=== PATIENT | female | born 1990 ===

== ENCOUNTER 2025-01-04 16:29 | Outpatient (AMB) | payer BC, SELFPAY ==
--- OUTSIDE RECORDS SUMMARY | 2025-01-04 17:43 | XMS_ITS | Clinical Summary ---
Author Organization [facility] Address [address] [place] [address] Care Team Providers Care Vegetable Washer Name Role Phone Alva Ibrahim MD Primary Care Prov ider Allergies Active Allergy Reactions Criticality Noted Date Comments Pollen Extracts 12/05/2008 Sulfa (Sulfonamide Antibiotics) Rash 11/2012 Medications syringe with needle, 1 mL (ALLERGY SYRINGE MISC) Inject as directed. Active fluticasone propionate (FLONASE) 50 mcg/actuation nasal spray 2 Sprays by Each Nare route daily. Active ivermectin 1 % cream 3 Active ketoconazole (NIZORAL) 2 % shampoo USE A FACE WASH DAILY 3 Active levonorgestrel- ethinyl estradiol (Vienva) 0.1-20 mg-mcg per tablet Take 1 tablet by mouth 1 (one) time each day. 3 Active tacrolimus (PROTOPIC) 0.1 % ointment Apply 1 Application topically 2 (two) times a day if needed. 1 Active Active Problems Problem Noted Date Diagnosed Date Seasonal allergies 05/29/2016 Overview (06/08/2024): Follows with Dr munoz- on immunotherapy Immunizations Name Administration Dates Next Due DTP 10/31/1994, 1,04/02/1990,01/31,1989 [id number] (Pentacel) 2mo to less than 5yo 03/02/1991 HPV, Quadrivalent 05/10/2008,01/05/2008,11/02/19 08 Hepatitis B Pediatric (Enger ix B; Recombivax HB) to less than 20 yo 12/31/2001,07/31/2001,07/03/2001 Influenza trivalent, 0.5mL, preservative free (Fluarix; FluLaval; Fluzone) ages 6mo and older (Afluria) 3 years and older 05/29/2016,02/20/2015,03/10/2014,03/09 MMR, measles mumps and rubel la Live (Priorix; M-M-R II) 12mo and older 10/31/1994,12/31/1990 Meningococcal MCV4P 10/29/2006 OPV 10/31/1994, 1,01/31/1990,11/30 Td Tetanus diptheria (Tdvax) 7yo and older 12/31/2000 Tdap Tetanus diptheria acell ular pertussis (Boostrix; Adacel) 7yo and older 05/29/2016,01/09/2006 Varicella live (Varivax) 12m o and older 12/05/2008,10/31/1997 Surgical History Surgery Date Site/Laterality Comments EYE SURGERY 05/2014 PROCEDURE: HISTORICAL EYE SURGERY; COMMENT: kane Medical History Medical History Date Comments Infectious mononucleosis DX:Infe ctious mononucleosis; COMMENT: at age 6 Family History Medical History Relation Name Comments Emphysema Father Diabetes Maternal Grandfather Other: heart Maternal Grandmother Other: pulmonary Maternal Grandmother Breast cancer Mother's side 1 aunt Melanoma Mother's side 2 UNCLE Allergies Sister 1 pcn Relation Name Status Comments Father Alive 1955 seperated sees dad regularly Maternal Grandfather (Age 95) Maternal Grandmother (Age 93) Mother Alive 1954 Mother's side 1 Mother's side 2 Mother's side 3 Paternal Grandfather Paternal Grandmother Alive Sister 1 Sister 2 Alive Yadira 1987 Social History Tobacco Use Types Packs/Day Years Used Date Smoking Tobacco: Never Smokeless Tobacco: Never Alcohol Use Standard Drinks/Week Comments Yes 1.7 (1 standard drink = 0.6 oz p ure alcohol) Housing Instability Answer Date Recorde d Are you worried that in the next 2 months you may not have stable housing? No 12/29/2024 Food Access & Nutrition Answer Date Rec orded Do you have access to a vari ety of food including fruits and vegetables? Yes 12/29/2024 Access to Healthcare Answer Date Record ed Within the last 3 months, ho w many times did you visit the emergency department for your medical care? 0 12/29/2024 Health Literacy Answer Date Recorded How often do you need to hav e someone help you when you read instructions, pamphlets, or other written material from your doctor or pharmacy? Never 12/29/2024 Caregiver: How often do you need to have someone help you when you read instructions, pamphlets, or other written material from your doctor or pharmacy? Not on file 12/29/2024 Financial Risk Answer Date Recorded How hard is it for you to pa y for the very basics like food, housing, medical care, and air conditioning / heating? Not very hard 12/29/2024 Transportation Answer Date Recorded Has the lack of transportati on kept you from meetings, work, or from getting things needed for daily living? No Has the lack of transportati on kept you from medical appointments or from getting medications? No 12/29/2024 Social Isolation Answer Date Recorded How often do you feel lonely or isolated from th ose around you? Never 12/29/2024 Food Risk Answer Date Recorded Within the past 12 months we worried whether our food would run out before we got money to buy more. Never true 12/29/2024 Within the past 12 months th e food we bought just didn't last and we didn't have money to get more. Never true 12/29/2024 Dependent Care Answer Date Recorded Do you need help finding or paying for care for your loved ones. For example, child and family counselor or elderly care for an older adult? No 12/29/2024 Education Answer Date Recorded Do you think completing more education or training, like finishing a GED, going to college, or learning a trade, would be helpful for you? No 12/29/2024 Employment and Income Answer Date Recor ded During the last four weeks, have you been actively looking for work? No 12/29/2024 Living Situation Answer Date Recorded What is your living situation? 0 12/29/2024 Comments Unknown Sex and Gender Information Value Date Recorded Sex Assigned at Not on file Legal Sex Female 11:09 PM EST Gender Identity Not on file Sexual Orientation Not on file Obstetrics History Last Filed Vital Signs Vital Sign Reading Time Taken Comments Blood Pressure 114/78 01/05/2024 8:57 AM EDT Pulse 83 01/05/2024 8:57 AM EDT Temperature - - Respiratory Rate - - Oxygen Saturation - - Inhaled Oxygen Concentration - - Weight 80.4 kg (177 lb 3.2 oz) 01/05/2024 8:57 A M EDT Height 175.3 cm (5' 9 ) 01/05/2024 8:57 AM EDT Body Mass Index 26.17 01/05/2024 8:57 AM EDT Plan of Treatment Upcoming Encounters Date Type Department Care Team (Late st Contact Info) Description 01/05/2025 9:30 AM EDT Office Visit Adult Medicine - [place] [address] [place] [address] Alva Ibrahim MD [address] [place] [address] Health Maintenance Due Date Last Done Comments COVID-19 Vaccine (3 - Moderna risk series) 07/18/2020 06/20/2020, 05/23/2020 HIV Screening 04/27/2022 Hepatitis C Screening 04/27/2022 Influenza Vaccine (#1) 2025 7, 02/20/2015, 03/10/2014, Additional history exists Social Influencers of Health Screening 12/29/2025 12/29/2024 DTaP,Tdap,and Td Vaccines (9 - Td or Tdap) 05/29/2026 05/29/2016, 01/09/2006, 12/31/2000, Additional history exists Cervical Cancer Screening: Pap Smear 01/04/2027 01/05/2024, 02/08/2013 Cholesterol Screening (Lipid Panel) 01/04/2029 01/05/2024, 01/05/2024 HIB Vaccines Completed 03/02/1991 IPV Vaccines Completed 10/31/1994, 03/19, 03/02/1991, Additional history exists MMR Vaccines Completed 10/31/1994, 12/31/1990 Hepatitis B Vaccines Completed 12/31/2001, 07/31/2001, 07/03/2001 Meningococcal ACWY Vaccine Completed 10/29/2006 HPV Vaccines Completed 05/10/2008, 12/17, 11/02/2007 Varicella Vaccines Completed 12/05/2008, 10/31/1997 Depression Screening Completed 12/29/2024 Hepatitis A Vaccines Aged Out No long er eligible based on patient's age to complete this topic Meningococcal B Vaccine Aged Out No l onger eligible based on patient's age to complete this topic Pneumococcal Vaccine: Pediatrics (0 to 5 Years) and At-Risk Patients (6 to 49 Years) Aged Out No longer eligible based on patient's age to complete this topic RSV Immunization Patients Under 20 months Aged Out No longer eligible based on patient's age to complete this topic Procedures Procedure Name Priority Date/Time Associated Diagnosis Comments LIPID PANEL Routine 01/05/2024 PAP SMEAR Routine 01/05/2024 from Last 3 Months or Most Recently Relevant to Health Maintenance Results * Hm Pap Smear (01/05/2024) Pap smear no interpretation , abstracted Historical Provider HEALTH MAINTENANCE Final Result * (ABNORMAL) Lipid panel (01/05/2024) LDL/HDL Ratio 3 0 - 4 Triglycerides 171(A) 0 - 150 mg/dL Cholesterol 197 0 - 200 mg/dL HDL 60 >=40 mg/dL LDL Cholesterol 103(A) 0 - 100 mg/dL Blood Venous blood specimen / Unknown Historical Provider LAB BLOOD ORDERABLES Lynnette l Result from Last 3 Months or Most Recently Relevant to Health Maintenance Insurance [facility] Care Teams Vegetable Washer Relationship Specialty Start Date End Date Alva Ibrahim MD [address] [place] [id number] PCP - General Internal Medicine 12/23/24
--- OUTSIDE RECORDS SUMMARY | 2025-01-04 17:43 | XMS_ITS ---
Author Name [facility] Organization Unknown Care Team Organization Name Specialty Phone Email Start Date End Da te [facility] GABRIEL WALDEN Primary Care 04/30/2023 01/05/2024
== END 2025-01-04 16:45 | disposition home or self-care (01) ==
LOC: HO.HMGAL 16:29
PROVIDERS: PCP Internal Medicine; Visit Provider Registered Nurse Emergency
DX: J30.89 Other allergic rhinitis (principal)
CPT/HCPCS: 95117; 95165

== ENCOUNTER 2025-01-31 15:18 | Outpatient (AMB) | payer BC, SELFPAY ==
--- OUTSIDE RECORDS SUMMARY | 2025-01-31 20:43 | XMS_ITS | Clinical Summary ---
Author Organization [facility] [address] [facility] Address [address] [place] [address] Phone Care Team Providers Care Medical Pathology Teacher Name Role Phone Alva Ibrahim MD Primary [...] (06/08/2024): Follows with Dr munoz- on immunotherapy Encounters Date Type Department Care Team Description 01/05/2025 9:30 AM EDT Office Visit Adult Medicine - [place] [address] [place] [address] Alva Velez MD Physical exam, annual (Primary Dx) from Last 3 Months Immunizations Name Administration Dates Next Due DTP 10/31/1994, 1,04/02/1990,01/31,1989 [id number] (Pentacel) 2mo to less than 5yo 03/02/1991 [...] SURGERY 05/2014 PROCEDURE: HISTORICAL EYE SURGERY; COMMENT: lasik Medical History Medical History Date Comments Infectious [...] Date Smoking Tobacco: Never Smokeless Tobacco: Never Tobacco Cessation:Counseling Given: Not Answered Alcohol Use Standard Drinks/Week Comments Yes 1.7 [...] care for your loved ones. For example, early childhood aide classroom or elderly care for an older adult? [...] is your living situation? 0 12/29/2024 Comments No Sex and Gender Information Value Date Recorded Sex Assigned at Not on file Legal Sex Female 11:09 PM EST Gender Identity Not on file Sexual Orientation Not on file Obstetrics History Last Filed Vital Signs Vital Sign Reading Time Taken Comments Blood Pressure 112/75 01/05/2025 9:27 AM EDT Pulse 78 01/05/2025 9:27 AM EDT Temperature 36.7 C (98 F) 01/05/2025 9:27 AM EDT Respiratory Rate - - Oxygen Saturation - - Inhaled Oxygen Concentration - - Weight 78.3 kg (172 lb 9.6 oz) 01/05/2025 9:27 A M EDT Height 175.3 cm (5' 9 ) 01/05/2025 9:27 AM EDT Body Mass Index 25.49 01/05/2025 9:27 AM EDT Plan of Treatment Upcoming Encounters Date Type Department Care Team (Late st Contact Info) Description 01/06/2026 8:30 AM EDT Office Visit Adult Medicine - [address] [phone] Alva Ibrahim MD [address] [place] [address] Health Maintenance Due Date Last Done Comments COVID-19 Vaccine ( season) 2025 02/15/2023, 09/26/2021, 04/13/2021, Additional history exists Influenza Vaccine (#1) 2025 , 02/18/2023, 02/25/2022, Additional history exists Social Influencers of Health Screening 12/29/2025 12/29/2024 DTaP,Tdap,and Td Vaccines (9 - Td or Tdap) 05/29/2026 05/29/2016, 01/09/2006, 12/31/2000, Additional history exists Cervical Cancer Screening: Pap Smear 01/04/2027 01/05/2024, 02/08/2013 Cholesterol Screening (Lipid Panel) 01/13/2030 01/13/2025, 01/05/2024, 01/05/2024 HIB Vaccines Completed 03/02/1991, 03/02/1991 IPV Vaccines Completed 10/31/1994, 03/19, 03/02/1991, Additional history exists MMR Vaccines Completed 10/31/1994, 12/31/1990 Hepatitis B Vaccines Completed 12/31/2001, 07/31/2001, 07/03/2001 Meningococcal ACWY Vaccine Completed 10/29/2006 HPV Vaccines Completed 05/10/2008, 12/17, 11/02/2007 Varicella Vaccines Completed 12/05/2008, 10/31/1997 Depression Screening Completed 12/29/2024 HIV Screening Discontinued Hepatitis A Vaccines Aged Out No long er eligible based on patient's age to complete this topic Hepatitis C Screening Discontinued Meningococcal B Vaccine Aged Out No l [...] Procedure Name Priority Date/Time Associated Diagnosis Comments CBC WITH AUTO DIFFERENTIAL Routine 01/13/2025 8:44 AM EDT Physical exam, annual THYROID STIMULATING HORMONE WITH REFLEX TO FREE T4 AND FREE T3 Routine 01/13/2025 8:44 AM EDT Physical exam, annual COMPREHENSIVE METABOLIC PANEL Routine 01/13/2025 8:44 AM EDT Physical exam, annual CBC AND DIFFERENTIAL Routine 01/13/2025 8:44 AM EDT Physical exam, annual LIPID PANEL WITH REFLEX TO DIRECT LDL Routine 01/13/2025 8:44 AM EDT Physical exam, annual HM PAP SMEAR Routine 01/05/2024 from Last 3 Months or Most Recently Relevant to Health Maintenance Results * Thyroid stimulating hormone with reflex to free t4 and free t3 (01/13/2025 8:44 AM EDT) TSH 1.56 0.40 - 4.00 mcIU/mL LAB CHEMISTRY METHOD 01/13/2025 1:00 PM EDT [facility] Blood Venous blood specimen / Unknown Venipuncture / Unknown 01/13/2025 8:44 AM EDT 01/13/2025 8:44 AM EDT us Alva Ibrahim MD LAB BLOOD ORDERABL ES Final Result [facility] [address] [place] [address], * (ABNORMAL) Lipid panel with reflex to direct LDL (01/13/2025 8:44 AM EDT) Pathologist [facility] Cholesterol 198 0 - 200 mg/dL LAB CHEMISTRY METHOD 01/13/2025 12:13 PM EDT [facility] Triglycerides 100 0 - 150 mg/dL LAB CHEMISTRY METHOD 01/13/2025 12:13 PM [facility] HDL 68 >=40 mg/dL LAB CHEMISTRY METHOD 01/13/2025 12:13 PM [facility] LDL Calculated 110(H) 0 - 100 mg/dL LAB CHEMISTRY METHOD 01/13/2025 12:13 PM T [facility] Comment:Estimated LDL Calcul ated using equation: Total cholesterol - HDL cholesterol - (Triglycerides/5) VLDL Cholesterol Darrel 20 mg/dL LAB CHEMISTRY METHOD 01/13/2025 12:13 PM EDT [facility] Non HDL Chol. (LDL+VLDL) 130 <145 mg/dL LAB CHEMISTRY METHOD 01/13/2025 12:13 PM [facility] Chol/HDL Ratio 2.9 0.0 - 4.4 LAB CHEMISTRY METHOD 01/13/2025 12:13 PM [facility] Blood Venous blood specimen / Unknown Venipuncture / Unknown 01/13/2025 8:44 AM EDT 01/13/2025 8:44 AM EDT Alva Ibrahim MD LAB BLOOD ORDERABL ES Final Result [facility] [address] [place] [address], * (ABNORMAL) CBC auto differential (01/13/2025 8:44 AM EDT) WBC 4.9 4.8 - 10.8 K/mcL LAB HEMETOLOGY METHOD 01/13/2025 11:44 AM [facility] RBC 4.50 3.80 - 4.80 M/mcL LAB HEMETOLOGY METHOD 01/13/2025 11:44 AM [facility] Hemoglobin 12.6 11.5 - 16.0 g/dL LAB HEMETOLOGY METHOD 01/13/2025 11:44 AM [facility] Hematocrit 39.4 35.0 - 47.0 % LAB HEMETOLOGY METHOD 01/13/2025 11:44 AM [facility] MCV 87.9 79.0 - 98.0 FL LAB HEMETOLOGY METHOD 01/13/2025 11:44 AM [facility] MCH 28.1 27.0 - 32.0 pcg LAB HEMETOLOGY METHOD 01/13/2025 11:44 AM [facility] MCHC 32.0 32.0 - 37.0 g/dL LAB HEMETOLOGY METHOD 01/13/2025 11:44 AM [facility] RDW 12.6 11.0 - 15.0 % LAB HEMETOLOGY METHOD 01/13/2025 11:44 AM [facility] Platelets 334 130 - 400 K/mcL LAB HEMETOLOGY METHOD 01/13/2025 11:44 AM [facility] MPV 10.0 7.0 - 11.0 FL LAB HEMETOLOGY METHOD 01/13/2025 11:44 AM [facility] NRBC 0.0 <1.0 % LAB HEMETOLOGY METHOD 01/13/2025 11:44 AM [facility] NRBC Absolute 0.00 <0.10 K/mcL LAB HEMETOLOGY METHOD 01/13/2025 11:44 AM [facility] Neutrophils Relative 52.1 % LAB HEMETOLOGY METHOD 01/13/2025 11:44 AM [facility] Lymphocytes Relative 34.8 % LAB HEMETOLOGY METHOD 01/13/2025 11:44 AM [facility] Monocytes Relative 7.8 % LAB HEMETOLOGY METHOD 01/13/2025 11:44 AM [facility] Eosinophils Relative 3.5 % LAB HEMETOLOGY METHOD 01/13/2025 11:44 AM [facility] Basophils Relative 1.0 % LAB HEMETOLOGY METHOD 01/13/2025 11:44 AM [facility] Immature Granulocytes Relative 0.8 % LAB HEMETOLOGY METHOD 01/13/2025 11:44 AM [facility] Neutrophils Absolute 2.54 1.50 - 7.00 K/mcL LAB HEMETOLOGY METHOD 01/13/2025 11:44 AM [facility] Lymphocytes Absolute 1.70 1.00 - 5.00 K/mcL LAB HEMETOLOGY METHOD 01/13/2025 11:44 AM [facility] Monocytes Absolute 0.38 0.20 - 1.00 K/mcL LAB HEMETOLOGY METHOD 01/13/2025 11:44 AM [facility] Eosinophils Absolute 0.17 0.00 - 0.50 K/[facility] LAB HEMETOLOGY METHOD 01/13/2025 11:44 AM EDT [facility] Basophils Absolute 0.05 0.00 - 0.20 K/[facility] LAB HEMETOLOGY METHOD 01/13/2025 11:44 AM EDT [facility] Immature Granulocytes Absolute 0.04(H) 0.00 - 0.03 K/[facility] LAB HEMETOLOGY METHOD 01/13/2025 11:44 AM EDT [facility] Blood Venous blood specimen / Unknown Venipuncture / Unknown 01/13/2025 8:44 AM EDT 01/13/2025 8:44 AM EDT us Alva Ibrahim MD LAB BLOOD ORDERABL ES Final Result [facility] [address] [place] [address], * Comprehensive metabolic panel (01/13/2025 8:44 AM EDT) Sodium 137 133 - 145 mmol/L LAB CHEMISTRY METHOD 01/13/2025 12:13 PM [facility] Potassium 4.4 3.5 - 5.5 mmol/L LAB CHEMISTRY METHOD 01/13/2025 12:13 PM [facility] Chloride 104 96 - 110 mmol/L LAB CHEMISTRY METHOD 01/13/2025 12:13 PM [facility] CO2 28 21 - 32 mmol/L LAB CHEMISTRY METHOD 01/13/2025 12:13 PM [facility] Anion Gap 5 3 - 11 LAB CHEMISTRY METHOD 01/13/2025 12:13 PM [facility] Glucose 87 70 - 100 mg/dL LAB CHEMISTRY METHOD 01/13/2025 12:13 PM [facility] BUN 10 5 - 25 mg/dL LAB CHEMISTRY METHOD 01/13/2025 12:13 PM [facility] Creatinine 0.74 0.50 - 1.10 mg/dL LAB CHEMISTRY METHOD 01/13/2025 12:13 PM [facility] eGFR 108 >=60 mL/min/1. 73m2 LAB CHEMISTRY METHOD 01/13/2025 12:13 PM [facility] Comment:Calculation based on the Chronic Kidney Disease Epidemiology Collaboration (CKD-EPI) equation refit without adjustment for race. BUN/Creatinine Ratio 13.5 LAB CHEMISTRY METHOD 01/13/2025 12:13 PM [facility] Calcium 9.3 8.5 - 10.5 mg/dL LAB CHEMISTRY METHOD 01/13/2025 12:13 PM [facility] AST (SGOT) 19 10 - 42 unit/L LAB CHEMISTRY METHOD 01/13/2025 12:13 PM [facility] ALT (SGPT) 24 10 - 60 unit/L LAB CHEMISTRY METHOD 01/13/2025 12:13 PM [facility] Alkaline Phosphatase 58 42 - 121 unit/L LAB CHEMISTRY METHOD 01/13/2025 12:13 PM [facility] Total Protein 7.7 6.0 - 8.0 g/dL LAB CHEMISTRY METHOD 01/13/2025 12:13 PM [facility] Albumin 3.7 3.2 - 5.0 g/dL LAB CHEMISTRY METHOD 01/13/2025 12:13 PM [facility] Total Bilirubin 0.5 0.0 - 1.4 mg/dL LAB CHEMISTRY METHOD 01/13/2025 12:13 PM [facility] Blood Venous blood specimen / Unknown Venipuncture / Unknown 01/13/2025 8:44 AM EDT 01/13/2025 8:44 AM EDT us Alva Ibrahim MD LAB BLOOD ORDERABL ES Final Result [id number] [address] [place] [address], * Pap Smear (01/05/2024) Pap smear no interpretation , abstracted Historical Provider HEALTH MAINTENANCE Final Result from Last 3 Months or Most Recently Relevant to Health Maintenance Insurance [facility] Care Teams Medical Pathology Teacher Relationship Specialty Start Date End Date Alva Ibrahim MD [address] [place] [address] [place] [id number] PCP - General Internal Medicine 12/23/24
== END 2025-01-31 15:19 | disposition home or self-care (01) ==
LOC: HO.HMGAL 15:18
PROVIDERS: PCP Internal Medicine; Visit Provider Registered Nurse Emergency
DX: J30.89 Other allergic rhinitis (principal)
CPT/HCPCS: 95117; 95165

== ENCOUNTER 2025-03-02 16:09 | Outpatient (AMB) | payer BC, SELFPAY ==
--- OUTSIDE RECORDS SUMMARY | 2025-03-02 19:18 | XMS_ITS | Clinical Summary ---
Author Organization [facility] [address] [facility] Address [address] [place] [address] Phone Care Team Providers Care Shop Steward Name Role Phone Alva Ibrahim MD Primary [...] AM EDT Office Visit Adult Medicine - [place] [address] [place] [address] Alva Velez MD Physical exam, annual (Primary Dx) from Last 3 Months Immunizations Immunization Administration Dates Next Due DTP 10/31/1994, 1,04/02/1990,01/31,1989 [id number] (Pentacel) 2mo to less than 5yo 03/02/1991 [...] care for your loved ones. For example, children teacher or elderly care for an older adult? [...] Date Recorded What is your living situation? Unrecognized valu e 12/29/2024 Comments No Sex and Gender Information [...] AM EDT Office Visit Adult Medicine - [place] [address] [place] [phone] Alva Ibrahim MD [address] [place] [address] Health Maintenance Due Date Last Done Comments [...] Screening (Lipid Panel) 01/13/2030 01/13/2025, 01/05/2024, 01/05/2024 RSV Immunization Adult Patients (1 - 1-dose 75+ series) 2064 HIB Vaccines Completed 03/02/1991, 03/02/1991 IPV Vaccines [...] and free t3 (01/13/2025 8:44 AM EDT) Pathologist [facility] TSH 1.56 0.40 - 4.00 mcIU/mL LAB CHEMISTRY METHOD 01/13/2025 1:00 PM EDT [facility] Blood Venous blood specimen / Unknown Venipuncture / Unknown 01/13/2025 8:44 AM EDT 01/13/2025 8:44 AM EDT us Alva Ibrahim MD LAB BLOOD ORDERABL ES Final Result [facility] [address] [place] [address], [place] [phone] * (ABNORMAL) Lipid panel with reflex to direct LDL (01/13/2025 8:44 AM EDT) [facility] Cholesterol 198 0 - 200 mg/dL LAB CHEMISTRY METHOD 01/13/2025 12:13 PM EDT [facility] Triglycerides 100 0 - 150 mg/dL LAB CHEMISTRY METHOD 01/13/2025 12:13 PM T [facility] HDL 68 >=40 mg/dL LAB CHEMISTRY METHOD 01/13/2025 12:13 PM EDT [facility] LDL Calculated 110(H) 0 - 100 mg/dL LAB CHEMISTRY METHOD 01/13/2025 12:13 PM T [facility] Comment:Estimated LDL Calcul ated using equation: Total cholesterol - HDL cholesterol - (Triglycerides/5) VLDL Cholesterol Darrel 20 mg/dL LAB CHEMISTRY METHOD 01/13/2025 12:13 PM [facility] Non HDL Chol. (LDL+VLDL) 130 <145 mg/dL LAB CHEMISTRY METHOD 01/13/2025 12:13 PM EDT [facility] Chol/HDL Ratio 2.9 0.0 - 4.4 LAB CHEMISTRY METHOD 01/13/2025 12:13 PM EDT [facility] Blood Venous blood specimen / Unknown Venipuncture / Unknown 01/13/2025 8:44 AM EDT 01/13/2025 8:44 AM EDT us Alva Ibrahim MD LAB BLOOD ORDERABL ES Final Result [facility] [address] [place] [address], * (ABNORMAL) CBC auto differential (01/13/2025 8:44 AM EDT) WBC 4.9 4.8 - 10.8 K/mcL LAB HEMETOLOGY METHOD 01/13/2025 11:44 AM EDT [facility] RBC 4.50 3.80 - 4.80 M/[facility] LAB HEMETOLOGY METHOD 01/13/2025 11:44 AM EDT [facility] Hemoglobin 12.6 11.5 - 16.0 g/dL LAB HEMETOLOGY METHOD 01/13/2025 11:44 AM EDT [facility] Hematocrit 39.4 35.0 - 47.0 % LAB HEMETOLOGY METHOD 01/13/2025 11:44 AM EDT [facility] MCV 87.9 79.0 - 98.0 FL LAB HEMETOLOGY METHOD 01/13/2025 11:44 AM EDT [facility] MCH 28.1 27.0 - 32.0 pcg LAB HEMETOLOGY METHOD 01/13/2025 11:44 AM EDT [facility] MCHC 32.0 32.0 - 37.0 g/dL LAB HEMETOLOGY METHOD 01/13/2025 11:44 AM EDT [facility] RDW 12.6 11.0 - 15.0 % LAB HEMETOLOGY METHOD 01/13/2025 11:44 AM [facility] Platelets 334 130 - 400 K/mcL LAB HEMETOLOGY METHOD 01/13/2025 11:44 AM [facility] MPV 10.0 7.0 - 11.0 FL LAB HEMETOLOGY METHOD 01/13/2025 11:44 AM [facility] NRBC 0.0 <1.0 % LAB HEMETOLOGY METHOD 01/13/2025 11:44 AM [facility] NRBC Absolute 0.00 <0.10 K/mcL LAB HEMETOLOGY METHOD 01/13/2025 11:44 AM [facility] Neutrophils Relative 52.1 % LAB HEMETOLOGY METHOD 01/13/2025 11:44 AM [facility] Lymphocytes Relative 34.8 % LAB HEMETOLOGY METHOD 01/13/2025 11:44 AM [facility] Monocytes Relative 7.8 % LAB HEMETOLOGY METHOD 01/13/2025 11:44 AM [facility] Eosinophils Relative 3.5 % LAB HEMETOLOGY METHOD 01/13/2025 11:44 AM [facility] Basophils Relative 1.0 % LAB HEMETOLOGY METHOD 01/13/2025 11:44 AM [facility] Immature Granulocytes Relative 0.8 % LAB HEMETOLOGY METHOD 01/13/2025 11:44 AM [facility] Neutrophils Absolute 2.54 1.50 - 7.00 K/mcL LAB HEMETOLOGY METHOD 01/13/2025 11:44 AM [facility] Lymphocytes Absolute 1.70 1.00 - 5.00 K/mcL LAB HEMETOLOGY METHOD 01/13/2025 11:44 AM [facility] Monocytes Absolute 0.38 0.20 - 1.00 K/mcL LAB HEMETOLOGY METHOD 01/13/2025 11:44 AM EDT [facility] Eosinophils Absolute 0.17 0.00 - 0.50 K/mcL LAB HEMETOLOGY METHOD 01/13/2025 11:44 AM EDT [facility] Basophils Absolute 0.05 0.00 - 0.20 K/mcL LAB HEMETOLOGY METHOD 01/13/2025 11:44 AM EDT [facility] Immature Granulocytes Absolute 0.04(H) 0.00 - 0.03 K/mcL LAB HEMETOLOGY METHOD 01/13/2025 11:44 AM EDT [facility] Blood Venous blood specimen / Unknown Venipuncture / Unknown 01/13/2025 8:44 AM EDT 01/13/2025 8:44 AM EDT Alva Ibrahim MD LAB BLOOD ORDERABL ES Final Result [facility] [address] [place] [address], * Comprehensive metabolic panel (01/13/2025 8:44 AM EDT) Sodium 137 133 - 145 mmol/L LAB CHEMISTRY METHOD 01/13/2025 12:13 PM [facility] Potassium 4.4 3.5 - 5.5 mmol/L LAB CHEMISTRY METHOD 01/13/2025 12:13 PM [facility] Chloride 104 96 - 110 mmol/L LAB CHEMISTRY METHOD 01/13/2025 12:13 PM [facility] CO2 28 21 - 32 mmol/L LAB CHEMISTRY METHOD 01/13/2025 12:13 PM [facility] Anion Gap 5 3 - 11 LAB CHEMISTRY METHOD 01/13/2025 12:13 PM [facility] Glucose 87 70 - 100 mg/dL LAB CHEMISTRY METHOD 01/13/2025 12:13 PM [facility] BUN 10 5 - 25 mg/dL LAB CHEMISTRY METHOD 01/13/2025 12:13 PM [facility] Creatinine 0.74 0.50 - 1.10 mg/dL LAB CHEMISTRY METHOD 01/13/2025 12:13 PM [facility] eGFR 108 >=60 mL/min/1. 73m2 LAB CHEMISTRY METHOD 01/13/2025 12:13 PM [facility] Comment:Calculation based on the Chronic Kidney Disease Epidemiology Collaboration (CKD-EPI) equation refit without adjustment for race. BUN/Creatinine Ratio 13.5 LAB CHEMISTRY METHOD 01/13/2025 12:13 PM [facility] Calcium 9.3 8.5 - 10.5 mg/dL LAB CHEMISTRY METHOD 01/13/2025 12:13 PM [facility] AST (SGOT) 19 10 - 42 unit/L LAB CHEMISTRY METHOD 01/13/2025 12:13 PM [facility] ALT (SGPT) 24 10 - 60 unit/L LAB CHEMISTRY METHOD 01/13/2025 12:13 PM [facility] Alkaline Phosphatase 58 42 - 121 unit/L LAB CHEMISTRY METHOD 01/13/2025 12:13 PM [facility] Total Protein 7.7 6.0 - 8.0 g/dL LAB CHEMISTRY METHOD 01/13/2025 12:13 PM [facility] Albumin 3.7 3.2 - 5.0 g/dL LAB CHEMISTRY METHOD 01/13/2025 12:13 PM [facility] Total Bilirubin 0.5 0.0 - 1.4 mg/dL LAB CHEMISTRY METHOD 01/13/2025 12:13 PM [facility] Blood Venous blood specimen / Unknown Venipuncture / Unknown 01/13/2025 8:44 AM EDT 01/13/2025 8:44 AM EDT Alva Ibrahim MD LAB BLOOD ORDERABL ES Final Result [facility] [address] [place] [address], * Pap Smear (01/05/2024) HM Pap smear no interpretation , abstracted Historical Provider HEALTH MAINTENANCE Final Result from Last 3 Months or Most Recently Relevant to Health Maintenance Insurance [facility] Care Teams Shop Steward Relationship Specialty Start Date End Date Alva Ibrahim MD [address] [place] [address] CONST[place]IN MORA [id number] PCP - General Internal Medicine 12/23/24
--- OUTSIDE RECORDS SUMMARY | 2025-03-02 19:18 | XMS_ITS | Data Portability ---
Author Organization [place] - [facility],, DULCE MARIA RUELAS MD Address [address] [address] Care Team Providers Care Radio Communications Mechanician Name Role Phone BLAYNE WALDEN Primary Care Provider Assessment No assessment recorded. Plan of Treatment Reminders Order Date Submit Date Provider Last Modified By Organization Details Last Modified Time Details Appointments None recorded. Lab cytology report, thin prep, smear or scraping, cervical or vaginal 2024 025 NIALL [facility] (Centralized Electronic Ordering - All Locations), Patient Can Go To The Location Of Their Choice, 5 14:20:27 pap test, thinprep, cervical 2023 024 [email or web address] [facility] (Centralized Electronic Ordering - All Locations), Patient Can Go To The Location Of Their Choice, 4 08:20:52 chlamydia sp, culture, unspecifi ed specimen 2023 024 [email or web address] [facility] (Centralized Electronic Ordering - All Locations), Patient Can Go To The Location Of Their Choice, 4 08:20:52 NG DNA, PCR, genital 2023 024 [email or web address] [facility] (Centralized Electronic Ordering - All Locations), Patient Can Go To The Location Of Their Choice, 4 08:20:52 pap, LB 2022 023 [email or web address] [facility] (Centralized Electronic Ordering - All Locations), Patient Can Go To The Location Of Their Choice, 3 07:46:27 pap test, thinprep, cervical 2022 023 [email or web address] [facility] (Centralized Electronic Ordering - All Locations), Patient Can Go To The Location Of Their Choice, 3 07:44:15 chlamydia sp, culture, unspecifi ed specimen 2022 023 [email or web address] [facility] (Centralized Electronic Ordering - All Locations), Patient Can Go To The Location Of Their Choice, 3 07:35:03 NG DNA, PCR, genital 2022 023 [email or web address] [facility] (Centralized Electronic Ordering - All Locations), Patient Can Go To The Location Of Their Choice, 3 07:35:03 pap test, thinprep, cervical 2021 022 [email or web address] [facility], Cytopathology Service, [address] [place] [address], [id number], 2 08:17:00 chlamydia sp, culture, unspecifi ed specimen 2021 022 [email or web address] [facility] Cytopathology Service, [address] [place] [address], [id number], 2 07:34:54 NG DNA, PCR, genital 2021 022 [email or web address] [facility], Cytopathology Service, [address] [place] [address], [id number], 2 07:34:54 Referral None recorded. Procedures None recorded. Surgeries None recorded. Imaging None recorded. Medication Orders Vienva 0.1 mg-20 mcg tablet 2024 025 NIALL [facility], [address] [place] [address], [address], 5 08:37:50 Aviane 0.1 mg-20 mcg tablet 2023 024 [email or web address] [id number], [address] [place], [address], 4 08:35:19 Aviane 0.1 mg-20 mcg tablet 2022 023 [place] [id number], [address] [place], [address], 3 08:54:40 Larissia 0.1 mg-20 mcg tablet 2021 022 [place] [facility], [address], [facility] [address], [place], [place], [id number], 08:28:38 Patient TargetsNo targets recorded. Patient Instructions Encounter Date Encounter Id Patient Instructions Last Modified By Organization Details Last Modified Time 06/21/2021 [id number] learning about healthy weight Not available 06/21/2021 08:27:48 She is here for annual exam, does not have a partner. Doing well on OCP and elects to continue. She has not been sexuallyt active in 4 years. 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 Not available 06/21/2021 08:27:46 06/24/2022 [id number] learning about healthy weight Not available 06/24/2022 08:54:38 She is here for annual exam, does not have a partner. Doing well on OCP and elects to continue. She has not been sexually active in 5 years. 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 We reviewed the interaction of the OCP with antibiotics. We discussed the need to use a condom during antibiotic use and also for a minimum of three weeks following the use of antibiotics. We discused interactions with some herbal and OTC meds, such as Saint Zay's Possible side effects, and the stated risk of one in 10,000 to develop a blood clot/ DVT/PE were also discussed. Safe sex was stressed. All questions answered, rx to be called in to pharmacy. Monthly self breast exam was taught, and stressed, and is advised to call if she discovers any new mass in the breast. [email or web address] Not available 06/24/2022 08:55:15 09/20/2022 [id number] abnormal Pap test: care instructions [email or web address] Not available 09/20/2022 08:24:17 She is here for repeat pap after prior pap had ASCUS negative HR HPV. Pap taken, we discussed that if repeat pap is fine then repeat at next annual, if ASCUS again then colpo. [email or web address] Not available 09/20/2022 08:24:52 06/25/2023 [id number] learning about healthy weight brian Not available 06/25/2023 08:35:19 She is here for annual, doing well on OCP, not sexually active in 6 years but likes to stay on pill for dysmenorrhea relief. Still working at [employer] in . ___ Note from 2022: She is here for annual exam, does not have a partner. Doing well on OCP and elects to continue. She has not been sexually active in 5 years. 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 Monthly self breast exam was taught, and stressed, and is advised to call if she discovers any new mass in the breast. We reviewed the interaction of the OCP with antibiotics. We discussed the need to use a condom during antibiotic use and also for a minimum of three weeks following the use of antibiotics. We discused interactions with some herbal and OTC meds, such as Saint Zay's Possible side effects, and the stated risk of one in 10,000 to develop a blood clot/ DVT/PE were also discussed. Safe sex was stressed. All questions answered, rx to be called in to pharmacy. [email or web address] Not available 06/25/2023 08:34:51 08/10/2024 [id number] learning about healthy weight brian Not available 08/10/2024 08:37:48 She is here for annual, doing well , on OCP for medical benefits, elects to continue. 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 ____ Note from 2023: She is here for annual, doing well on OCP, not sexually active in 6 years but likes to stay on pill for dysmenorrhea relief. Still working at [employer] in . 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 Monthly self breast exam was taught, and stressed, and is advised to call if she discovers any new mass in the breast. We reviewed the interaction of the OCP with antibiotics. We discussed the need to use a condom during antibiotic use and also for a minimum of three weeks following the use of antibiotics. We discused interactions with some herbal and OTC meds, such as Saint Zay's Possible side effects, and the stated risk of one in 10,000 to develop a blood clot/ DVT/PE were also discussed. Safe sex was stressed. All questions answered, rx to be called in to pharmacy. Not available 08/10/2024 08:38:04 Reason for Referral None Reported. Results Created Date Observation Date Name Description Value Unit Range Abnormal Flag Note LastModifiedBy Organization Detail LastModifiedTime 06/21/19 22 06/21/2021 GENER AL5CA SE [id number] Chlam ydia: NEGAT CRISTOFER N. krish birch e: NEGAT CRISTOFER Compl eted on 06-25 CLINI ANASTASIIA INFOR MATIO N: HPV If Diagn osis of ASCUS . LPS 2/2/2 1 neg, z12.4 , z11.3 , z01.4 19 SOURC E: ThinP rep Pap for CT/GC Gross Descr iptio n: ThinP rep Vial Recei teressa. Physi cians BENEDICT N STAN LLGRACE/ [phone] Not Available [facility], Cytopathology Service [address] [facility], [place], [address], 06/25/2021 15:06:03 07/16/19 22 07/16/2021 PAP1C ASE [id number] ThinP rep Pap, Image d: NEGAT CRISTOFER FOR SQUAM OUS INTRA EPITH ELIAL MARLENE Burger AND NE HOUSE . Note: The Pap test is a scree janey test with an inher ent false negat cristofer rate. Autom ated presc reeni ng of all liqui d based speci mens is perfo rmed by the ThinP rep Imagi ng Tigre howell [facility] dYung Zuniga [facility] , [place]( CP) (Case elect brandie lamb anusha d 07 06 2021) ADEQU ACY: Satis facto ry Endoc ervic al/tr ansfo rmati on zone compo nent prese nt. SOURC E: ThinP rep Pap HPV IF ASCUS , Cervi anastasiia, Image d CLINI ANASTASIIA INFOR MATIO N: HPV If Diagn osis of ASCUS . lps 1 neg. z12.4 , z01.4 19, z11.3 Not Available [facility], Cytopathology Service [address] [place], [address], 07/06/2021 17:01:15 06/24/19 23 06/26/[address]/GC AMPLI FIED PROBE C.trach.amp probe thin prep (neg) NEGAT CRISTOFER No Chlam ydia Trach omati s RNA detec kumar in this patie nt's sampl e (REFE RENCE RANGE /NORM AL VALUE : NOT DETEC KUMAR) Note: This test uses trans cript ion- media kumar ampli ficat ion metho d to detec t rRNA from C. Trach omati s Not Available [facility] (Centralized Electronic Ordering - All Locations) Patient Can Go To The Location Of Their Choice, [id number] 06/26/2022 13:46:51 06/24/19 23 06/26/[address]/GC AMPLI FIED PROBE GC amplified probe thin prep (neg) NEGAT CRISTOFER No Neiss eria Gonor rhoea e RNA detec kumar in this patie nt's sampl e (REFE RENCE RANGE /NORM AL VALUE : NOT DETEC KUMAR) NOTE: This test uses trans cript ion-m ediat ed ampli ficat ion metho d to detec t rRNA from N.Mario orrho eae. A negat cristofer resul t does not precl ude infec tion. In the case of a negat cristofer urine resul t, testi ng of an endoc ervic al(fe male) or ureth ral (male ) speci men is recom akila d if there is high clini anastasiia suspi cion of infec tion. Due to very high sensi tivit y of Nucle ic Acid Ampli ficat ion Test, false posit cristofer resul ts may occur . There fore, speci men handl ing is extre ameena impor tant. In patie nts in whom the disea se is unlik jordan, addit ional sampl e for testi ng shoul d be consi dered after an initi al posit cristofer resul t. The perfo rmanc e steve cteri stics of this test have not been evalu ated in child yuni. The Aptim a Combo 2 assay is not inten ded for the evalu ation of suspe cted sexua l abuse or for other medic o-leg al indic ation s. The order ing provi dunia shoul d asses s if the patie nt had conse nsual sex witho ut risk of sexua l abuse . [facility] if neede d. Conta ct phone numbe r . Thera peuti c failu re or succe ss canno t be deter mined with the Aptim a Combo 2 assay since nucle ic acid may persi st follo wing appro priat e antim icrob ial thera py. The Cente rs for Disea se Contr ol and Preve ntion ([facility]) recom mends confi rmato ry retes ting using cultu re or a diffe rent nucle ic acid ampli ficat ion test when posit cristofer resul ts occur , if indic ated. Not Available [facility] (Centralized Electronic Ordering - All Locations) Patient Can Go To The Location Of Their Choice, [id number] 06/26/2022 13:46:51 06/24/19 23 06/24/2022 [facility] results abnormal Patie nt Name: GAIL RUSSELL nt : 990 (Age: 31) Lab Acces wesley #: [id number] Colle ction Date: 023 Acces wesley Date: 023 Sign Out Date: 2022 Tissu e Sourc e: 1: THINP REP MOLDER APPRENTICE PAP TEST, CERVI ANASTASIIA: Final Diagn osis: ATYPI ANASTASIIA SQUAM OUS CELLS OF UNDET ERMIN ED SIGNI FICAN CE. Satis facto ry for evalu ation . Endoc ervic al/tr ansfo rmati on zone prese nt. Proce dures /Adde nda: Human Papil seven Virus , High- Risk (Any Dx) Statu s: Anusha d Out Inter preta tion: Negat cristofer Metho dolog y: Holog ic Aptim a HPV mRNA assay (Nucl eic Acid Ampli ficat ion Test, NAAT) . Clini anastasiia Histo ry: Date of Last Menst rual Perio d: Menst rual Histo ry: not avail able Contr acept cristofer Histo ry: not avail able Ancil zelalem Testi ng: Chlam ydia/ GC HPV (ASCU S) Case image d by the ThinP rep Imagi ng Syste m with luis high rescr charity bermudez or denisa fragoso. Perfo rmed at [facility] ate Refer ence [facility] Cyt[facility] o[facility], [address] [place] Clini anastasiia Histo ry (othe r): z01.4 19, z11.3 , 2 neg, routi ne scree n Prima ry Patho logis t: Jessica Mejia M.D. Phone #: [phone], [facility]: [id number] Not Available [facility] (Centralized Electronic Ordering - All Locations) Patient Can Go To The Location Of Their Choice, [id number] 07/04/2022 17:43:45 09/21/19 23 09/20/2022 CYTOL OGY (MOLDER APPRENTICE) results Lupillo nt Name: GAIL RUSSELL nt : 990 (Age: 31) Lab Acces wesley #: [id number] Colle ction Date: 023 Acces wesley Date: 023 Sign Out Date: 2022 Tissu e Sourc e: 1: THINP REP MOLDER APPRENTICE PAP TEST, CERVI ANASTASIIA: Final Diagn osis: NEGAT CRISTOFER FOR INTRA EPITH ELIAL LESIO N OR MALIG LACY . Satis facto ry for evalu ation . Endoc ervic al/tr ansfo rmati on zone prese nt. Clini anastasiia Histo ry: Date of Last Menst rual Perio d: 08/27 Menst rual Histo ry: not avail able Contr acept cristofer Histo ry: not avail able Ancil zelalem Testi ng: HPV (ASCU S) Case image d by the ThinP rep Imagi ng Syste m with luis dennisonr charity g or denisa w. Clini anastasiia Histo ry (othe r): R87.6 10, LPS [address] 3-ASC US HPV NEG Phone #: [phone], On-[facility] Patho logis t: [id number] Not Available [facility] (Centralized Electronic Ordering - All Locations) Patient Can Go To The Location Of Their Choice, [id number] 10/03/2022 09:40:19 06/25/19 24 06/26/[address]/GC AMPLI FIED PROBE C.trach.amp probe thin prep (neg) NEGAT CRISTOFER No Chlam ydia Trach omati s RNA detec kumar in this patie nt's sampl e (REFE RENCE RANGE /NORM AL VALUE : NOT DETEC KUMAR) Note: This test uses trans cript ion- media kumar ampli ficat ion metho d to detec t rRNA from C. Trach omati s Not Available [facility] (Centralized Electronic Ordering - All Locations) Patient Can Go To The Location Of Their Choice, [id number] 06/26/2023 15:10:05 06/25/19 24 06/26/[address]/GC AMPLI FIED PROBE GC amplified probe thin prep (neg) NEGAT CRISTOFER No Neiss eria Gonor rhoea e RNA detec kumar in this patie nt's sampl e (REFE RENCE RANGE /NORM AL VALUE : NOT DETEC KUMAR) NOTE: This test uses trans cript ion-m ediat ed ampli ficat ion metho d to detec t rRNA from N.Mario orrho eae. A negat cristofer resul t does not precl ude infec tion. In the case of a negat cristofer urine resul t, testi ng of an endoc ervic al(fe male) or ureth ral (male ) speci men is recom akila d if there is high clini anastasiia suspi cion of infec tion. Due to very high sensi tivit y of Nucle ic Acid Ampli ficat ion Test, false posit cristofer resul ts may occur . There fore, speci men handl ing is extre ameena impor tant. In patie nts in whom the disea se is unlik jordan, addit ional sampl e for testi ng shoul d be consi dered after an initi al posit cristofer resul t. The perfo rmanc e steve cteri stics of this test have not been evalu ated in child yuni. The Aptim a Combo 2 assay is not inten ded for the evalu ation of suspe cted sexua l abuse or for other medic o-leg al indic ation s. The order ing provi dunia shoul d asses s if the patie nt had conse nsual sex witho ut risk of sexua l abuse . [facility] lt [facility] if neede d. Conta ct phone numbe r . Thera peuti c failu re or succe ss canno t be deter mined with the Aptim a Combo 2 assay since nucle ic acid may persi st follo wing appro priat e antim icrob ial thera py. The Cente rs for Disea se Contr ol and Preve ntion ([facility]) recom mends confi rmato ry retes ting using cultu re or a diffe rent nucle ic acid ampli ficat ion test when posit cristofer resul ts occur , if indic ated. Not Available [facility] (Centralized Electronic Ordering - All Locations) Patient Can Go To The Location Of Their Choice, [id number] 06/26/2023 15:10:05 06/25/19 24 06/25/2023 [facility] results Patie nt Name: GAIL RUSSELL nt : 990 (Age: 32) Lab Acces wesley #: [id number] Colle ction Date: 024 Acces wesley Date: 024 Sign Out Date: 2023 Tissu patrice Astudillo e: 1: THINP REP MOLDER APPRENTICE PAP TEST, CERVI ANASTASIIA: Final Diagn osis: NEGAT CRISTOFER FOR INTRA EPITH ELIAL LESIO N OR MALIG LACY . Satis facto ry for evalu ation . Endoc ervic al/tr ansfo rmati on zone prese nt. Clini anastasiia Histo ry: Date of Last Menst rual Perio d: 06-03 Menst rual Histo ry: not avail able Contr acept cristofer Histo ry: not avail able Ancil zelalem Testi ng: HPV (ASCU S) Chlam ydia/ GC Case image d by the ThinP rep Imagi ng Syste m with luis bermudez or denisa rios Perfo rmed at [facility] ate Refer ence Labor atory [facility]par t[facility] Cytol ogy, [address] [place] Clini anastasiia Histo ry (othe r): z01.4 19, z11.3 , routi ne scree n, lps 5-5-2 3 neg Phone #: [phone], [facility] Patho logis t: [id number] Not Available [facility] (Centralized Electronic Ordering - All Locations) Patient Can Go To The Location Of Their Choice, [id number] 07/01/2023 15:10:34 08/11/1908/11/2024 IGP, CTNG, RFX APTIM A HPV ASCU chlamydia, nuc. acid amp Negati ve negati ve Not Available [facility] ([facility]) [address] [place], [address], 08/12/2024 14:20:27 08/11/1908/11/2024 IGP, CTNG, RFX APTIM A HPV ASCU gonococcus, nuc. acid amp Negati ve negati ve Not Available [facility] ([facility]) [address] [place], [address], 08/12/2024 14:20:27 08/11/19 25 08/12/2024 IGP, CTNG, RFX APTIM A HPV ASCU diagnosis: Commmandy [place] FOR INTRA EPITH ELIAL MARLENE Burger OR NE HOUSE . Not Available [facility] ([facility]) [address] [place], [address], 08/12/2024 14:20:27 08/11/19 25 08/12/2024 IGP, CTNG, RFX APTIM A HPV ASCU specimen adequacy: Didi t Satis facto claire for evalu ation . Endoc ervic al and/o r squam ous metap lasti c cells (endo cervi anastasiia compo nent) are prese nt. Not Available [facility] ([facility]) [address] [place], [address], 08/12/2024 14:20:27 08/11/19 25 08/12/2024 IGP, CTNG, RFX APTIM A HPV ASCU clinician provided ICD10: Didi crowe Z01.4 19 Not Available [facility] ([facility]) [address] [place], [address], 08/12/2024 14:20:27 08/11/19 25 08/12/2024 IGP, CTNG, RFX APTIM A HPV ASCU performed by: Didi rangel A Prior , Cytot echmony mueller t (ASCP ) Not Available [facility] ([facility]) [address] [place], [address], 08/12/2024 14:20:27 08/11/19 25 08/12/2024 IGP, CTNG, RFX APTIM A HPV ASCU . . Not Available [facility] ([facility]) [address] [place], [address], 08/12/2024 14:20:27 08/11/19 25 08/12/2024 IGP, CTNG, RFX APTIM A HPV ASCU note: Commen t The Pap smear is a scree janey test desig hudson to aid in the detec tion of yuniel ligna nt and malig nant condi tions of the uteri ne cervi x. It is not a diagn ostic proce dure and shoul d not be used as the sole means of detec ting cervi anastasiia cance r. Both false -posi tive and false -nega tive repor ts do occur . Not Available [facility] ([facility]) [address] [place], [address], 08/12/2024 14:20:27 08/11/1908/12/2024 IGP, CTNG, RFX APTIM A HPV ASCU test methodology: Commen t This liqui d based ThinP rep(R ) pap test was scree hudson with the use of an image guide d syste m. Not Available [facility] ([facility]) [address] [place], [address], 08/12/2024 14:20:27 08/11/19 25 08/12/2024 IGP, CTNG, RFX APTIM A HPV ASCU . Commen t The HPV DNA refle x crite alisha were not met with this speci men resul t there fore, no HPV testi ng was perfo rmed. Not Available [facility] ([facility]) [address] [place], [address], 08/12/2024 14:20:27 Result Notes None recorded. Problems No Known Problems Procedures Surgical History Date Name Laterality Status Provider Name and Address Organization Details Recorded Time 08/18/2015 Other completed Griselda Fonseca in [facility], 04/15/2016 13:40:32 05/19/2014 Other completed Griselda Lucas [place] - Raymundo in [facility], 04/15/2016 13:40:20 Imaging Results None recorded. Procedure Notes None recorded. Medical Equipment None Reported. Allergies Allergen ID Allergen Name Allergen Category Reaction Reaction Severity Criticality Documentation Date Start Date Code Code System Note Provider Name and Address Organization Details Recorded Time 67236 Substance with sulfonami de structure and antibacte rial mechanism of action (substanc e) medicatio n rash severe Not available 04/15/2016 35459 8003 SNMOHSEN Villalobos Shayy valladares [place] - [facility], 6 13:35:20 Medications Name Sig Start Date Stop Date Status Note LastModified by Organization Details LastModified Time larissia 0.1-20 mg-mcg tabs 06/03 completed Not Available Not Available Not Available sronyx 0.1-20 mg-mcg tabs 06/20 completed Not Available Not Available Not Available amoxicillin /clavulanat e potassium 875-125 mg tabs 06/03 completed Not Available Not Available Not Available ketoconazol e 2 % shampoo USE A FACE WASH DAILY active Not Available Not Available No t Available fluconazole 150 mg tablet TAKE 1 TABLET(S) EVERY DAY BY MOUTH AT BEDTIME FOR 1 DAY. 06/21 completed Not Available Not Available Not Available prednisolon e acetate 1 % eye drops,suspe nsion INSTILL 1 DROP IN BOTH EYES TWICE A DAY FOR 3 WEEKS 06/20 completed Not Available Not Available Not Available benzonatate 100 mg capsule 04/15 completed Not Available Not Available Not Available tacrolimus 0.1 % topical ointment APPLY TO ALL AFFECTED AREAS TWICE A DAY active Not Available Not Available No t Available Cheratussin AC 10 mg-100 mg/5 mL oral liquid 04/15 completed Not Available Not Available Not Available amoxicillin 875 mg-potassiu m clavulanate 125 mg tablet TAKE 1 TABLET BY MOUTH TWICE A DAY FOR 10 DAYS 08/10 completed Not Available Not Available Not Available Vitamin C active Not Available Not Alissa ilable Not Available doxycycline monohydrate 40 mg capsule,imm ediate - delay release Take one capsule ONCE A DAY 08/10 completed Not Available Not Available Not Available Mucus Relief ER 600 mg tablet, extended release TAKE 1 TABLET BY MOUTH 2 TIMES PER DAY NEEDED FOR CONGESTIO N FOR 7 DAYS 09/20 completed Not Available Not Available Not Available Divina (28) 0.5 mg-35 mcg tablet TAKE ONE TABLET BY MOUTH EVERY DAY 06/02 completed Not Available Not Available Not Available Multi Vitamin active Not Available Not Available Not Available ivermectin 1 % topical cream APPLY TO FACE EVERY DAY active Not Available Not Available No t Available Vienva 0.1 mg-20 mcg tablet TAKE 1 TABLET BY MOUTH EVERY DAY 2024 active Not Available Not Available Not Avai lable Winlevi 1 % topical cream Apply EVERY MORNING 06/25 completed Not Available Not Available Not Available Vitals Date Recorded Body weight Body mass index (BMI) Body height Body temperature Heart rate Systolic And Diastolic Provider Name and Address Organization Details Last Updated DateTime 2 38725.7 g 25.8 kg/m2 172.72 cm 97.4 [degF] 82 /min 126/79 mm[Hg] Griselda Fonseca in [facility], 2 08:02:21 Date Recorded Body temperature Heart rate Body weight Body mass index (BMI) Body height Systolic And Diastolic Provider Name and Address Organization Details Last Updated DateTime 3 97.2 [degF] 87 /min 59340.8 9 g 26.2 kg/m2 172.72 cm 128/70 mm[Hg] Griselda Fonseca in [facility], 3 08:05:35 Date Recorded Body height Body mass index (BMI) Body weight Heart rate Body temperature Systolic And Diastolic Provider Name and Address Organization Details Last Updated DateTime 4 172.72 cm 26.2 kg/m2 50738.6 1 g 85 /min 97.4 [degF] 122/70 mm[Hg] Griselda Fonseca in [facility], 4 08:12:04 Date Recorded Body height Body mass index (BMI) Body weight Heart rate Systolic And Diastolic Provider Name and Address Organization Details Last Updated DateTime 08/10/2024 172.72 cm 25.7 kg/m2 54994.47 g 79 /min 123/78 mm[Hg] Griselda Fonseca in [facility], 08/10/2024 08:16:28 Date Recorded Body height Body mass index (BMI) Body weight Body temperature Heart rate Systolic And Diastolic Provider Name and Address Organization Details Last Updated DateTime 3 172.72 cm 26.1 kg/m2 43649.7 3 g 97.4 [degF] 82 /min 128/70 mm[Hg] [facility], 08:03:00 Social History Question Answer Notes LastModified by Organizat ion Details LastModified Time Tobacco Smoking Status Never Smoker CONSTANTIN Levin in [facility], 04/15/2016 13:38:04 How Many Years Have You Consumed Alcohol? 10 Information not available 06/21/2021 What Is Your Level Of Caffeine Consumption? Occasional Information not available 04/15/2016 In The 14 Days Before Symptom Onset, Have You Had Close Contact With A Laboratory-confir med COVID-19 While That Case Was Ill? No Information not available 06/21/2021 In The 14 Days Before Symptom Onset, Have You Had Close Contact With A Person Who Is Under Investigation For COVID-19 While That Person Was Ill? No Information not available 06/21/2021 Have You Been To An Area Known To Be High Risk For COVID-19? No Information not available 06/21/2021 What Type Of Diet Are You Following? REGULAR Information not available 04/15/2016 Which Illicit Or Recreational Drugs Have You Used? No Information not available 04/15/2016 Do You Reside In Or Have You Traveled To An Area Where Ebola Virus Transmission Is Active? No Information not available 04/15/2016 Education 4 Year College Informatio n not available 04/15/2016 What Is The Highest Grade Or Level Of School You Have Completed Or The Highest Degree You Have Received? [id number] Information not available 06/21/2021 Who Is Your Employer? [employer] Information not available 06/24/2022 How Many Days In The Past Year Have You Had A Heavy Drinking Consumption (4+ Female, 5+ Male)? 0 Information no t available 04/15/2016 Are There Any Guns Present In Your Home? No Information not available 06/21/2021 High Number Of Sexual Partners No Information not available 04/15/2016 To Which Gender Do You Self-identify? Female Information not available 04/15/2016 Marital Status Single Informatio n not available 04/15/2016 What Was The Date Of Your Most Recent Tobacco Screening? 08/10/2024 Information not available 08/10/2024 What Is Your Relationship Status? Single Information not available 06/21/2021 Are You Sexually Active? Yes But Not Cruz. Information not available 08/10/2024 How Much Tobacco Do You Smoke? No Information not available 06/03/2019 General Stress Level Low Information not available 04/15/2016 How Many Years Have You Smoked Tobacco? 0 Information not available 06/03/2019 Have You Recently (within The Last 12 Weeks, Or During A Current ) Traveled To Or Lived In A Zika-affected Area? No Information not available 04/15/2016 How Many Days In The Past Year Have You Consumed 4 Or More Drinks? 0 Information no t available 06/21/2021 Sex: Female Functional Status Question Answer Note LastModified by Organizat ion Details LastModified Time Do you use any illicit or recreational drugs? No Information not available 06/21/2021 Do you or have you ever used any other forms of tobacco or nicotine? No Information not available 06/21/2021 What is your level of alcohol consumption? Occasional Information not available 04/15/2016 Do you or have you ever used smokeless tobacco? Never used smokeless tobacco Information not available 06/03/2019 Are you currently employed? 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 Information not available 04/15/2016 Do you or have you ever used e-cigarettes or vape? Never used electronic cigarettes Information not available 06/03/2019 What is your exercise level? Occasional Information not available 04/15/2016 Mental Status Question Answer Note LastModified by Organization D etails LastModified Time Do you feel stressed (tense, restless, nervous, or anxious, or unable to sleep at night)? [id number] Information not available 06/21/2021 Family History Relationship Description Onset Age of this Age Resolved Age Notes LastModified by Organization Details LastModified Time Father Problem copd [email or web address] Not available 04/15/2016 13:37:40 Mother Heart disease [email or web address] Not available 2024 08:18:03 Medical History Condition Response Anesthesia complications N High Blood Pressure N Candidate for MyRisk panel N Autoimmune Condition N Thyroid Problems N Kidney or Bladder Problems N GI Problems N Lung Disease N Depression N Defects or Inherited Disease N Anemia N History of Ovarian Cancer N History of Breast Cancer N BRANDI exposure N BRCA testing in past N Osteopenia N Psychiatric Illness N Anxiety Disorder N Diabetes N Arthritis N Headaches or Migraines N Infertility N Asthma N History of Cancer N Endometriosis N Hepatitis N Heart Disease N Hypertension N Osteoporosis N Gynecological History Statement/Question Response Flow Moderate Date of LMP 07/28/2024 Frequency of Cycle (Q days) 28 Menses Monthly Y Duration of Flow (days) 3 Age at Menarche 14 Current Control Method BCPs Obstetrics History GPAL:G 0 P 0 0 0 0 Immunizations Vaccine Type Date Status Note Provider Nam e and Address Organization Details Recorded Time Influenza, split virus, quadrivalent, preservative 7 completed CONSTANTIN Smallwood in [facility], 02/19/2023 08:45:56 Influenza, split virus, quadrivalent, preservative 8 completed CONSTANTIN Smallwood in [facility], 02/19/2023 08:45:56 Influenza, split virus, quadrivalent, preservative 9 completed CONSTANTIN Smallwood in [facility], 02/19/2023 08:45:56 Influenza, split virus, quadrivalent, preservative 0 completed CONSTANTIN Smallwodo in [facility], 02/19/2023 08:45:56 COVID-19, mRNA, LNP-S, PF, 100 mcg/0.5mL dose or 50 mcg/0.25mL dose 1 completed Irma Maria Isabel null, [place] [facility], 02/19/2023 08:45:56 influenza, unspecified formulation 2 completed Irma Nicolas null, [place] - [facility], 02/19/2023 08:45:56 COVID-19, mRNA, LNP-S, PF, sbeastian-sucrose, 30 mcg/0.3 mL 3 completed Irma Nicolas null, [place] - [facility], 02/19/2023 08:45:56 Influenza, split virus, quadrivalent, preservative 1 completed Griselda Meczywor null, [place] - [facility], 08/10/2024 08:16:15 MMR 5 completed Griselda Meczywor null, [place] - [facility], 08/10/2024 08:16:15 MMR 1 completed Griselda Meczywor null, [place] - [facility], 08/10/2024 08:16:15 COVID-19, mRNA, LNP-S, PF, 100 mcg/0.5mL dose or 50 mcg/0.25mL dose 1 completed Griselda Meczywor null, [place] - [facility], 08/10/2024 08:16:15 COVID-19, mRNA, LNP-S, PF, 100 mcg/0.5mL dose or 50 mcg/0.25mL dose 1 completed Griselda Meczywor null, [place] - [facility], 08/10/2024 08:16:15 COVID-19, mRNA, LNP-S, PF, 100 mcg/0.5mL dose or 50 mcg/0.25mL dose 2 completed Griselda Meczywor null, [place] - [facility], 08/10/2024 08:16:15 Tdap 7 completed Griselda Meczywor null, [place] - [facility], 08/10/2024 08:16:15 Tdap 6 completed Griselda Meczywor null, [place] - [facility], 08/10/2024 08:16:15 varicella 8 completed Griselda Meczywor null, [place] - [facility], 08/10/2024 08:16:15 varicella 9 completed Griselda Meczywor null, [place] - [facility], 08/10/2024 08:16:15 DTP 5 completed Griselda Meczywor null, [place] - [facility], 08/10/2024 08:16:15 DTP 0 completed Griselda Meczywor null, [place] - [facility], 08/10/2024 08:16:15 DTP 0 completed Griselda Meczywor null, [place] - [facility], 08/10/2024 08:16:15 DTP 0 completed Griselda Meczywor null, [place] - [facility], 08/10/2024 08:16:15 DTP 1 completed Griselda Meczywor null, [place] - [facility], 08/10/2024 08:16:15 OPV, trivalent 5 completed Griselda Meczywor null, [place] - [facility], 08/10/2024 08:16:15 OPV, trivalent 0 completed Griselda Meczywor null, [place] - [facility], 08/10/2024 08:16:15 OPV, trivalent 0 completed Griselda Meczywor null, [place] - [facility], 08/10/2024 08:16:15 OPV, trivalent 1 completed Griselda Meczywor null, [place] - [facility], 08/10/2024 08:16:15 Influenza, split virus, trivalent, preservative 7 completed Griselda Meczywor null, [place] - [facility], 08/10/2024 08:16:15 Influenza, split virus, trivalent, preservative 5 completed Griselda Meczywor null, [place] - [facility], 08/10/2024 08:16:15 Influenza, split virus, trivalent, preservative 3 completed Griselda Meczywor null, [place] - [facility], 08/10/2024 08:16:15 Influenza, split virus, trivalent, preservative 4 completed Griselda Meczywor null, [place] - [facility], 08/10/2024 08:16:15 HPV, quadrivalent 8 completed Griselda Meczywor null, [place] - [facility], 08/10/2024 08:16:15 HPV, quadrivalent 8 completed Griselda Meczywor null, [place] - [facility], 08/10/2024 08:16:15 HPV, quadrivalent 8 completed Griselda Meczywor null, [place] - [facility], 08/10/2024 08:16:15 Td (adult), 2 Lf tetanus toxoid, preservative free, adsorbed 1 completed Griselda Meczywor null, [place] - [facility], 08/10/2024 08:16:15 Hep B, adolescent or pediatric 2 completed Griselda Meczywor null, [place] - [facility], 08/10/2024 08:16:15 Hep B, adolescent or pediatric 2 completed Griselda Meczywor null, [place] - [facility], 08/10/2024 08:16:15 Hep B, adolescent or pediatric 2 completed Griselda Meczywor null, [place] - [facility], 08/10/2024 08:16:15 Hib (HbOC) 1 completed Griselda Meczywor null, [place] - [facility], 08/10/2024 08:16:15 meningococcal MCV4P 7 completed Griselda valladares [place] - [facility], 08/10/2024 08:16:15 Past Encounters Encounter ID Performer Location Encounter Start Date Encounter Closed Date Diagnosis/Indication Diagnosis SNOMED-CT Code Diagnosis ICD10 Code Diagnosis IMO Codes Diagnosis Note [id number] MD DULCE MARIA Limon MD [address] [facility] [place] [address] 04/15/2016 13:17:19 04/15/2016 15:47:11 Specialized medical examination 47436429 Z01.419 Venereal d isease screening 947492839 Z11.3 [id number] MD DULCE MARIA Limon MD [address] [facility] [place] [address] 06/02/2017 09:48:15 06/02/2017 11:22:49 Specialized medical examination 42681980 Z01.419 Venereal d isease screening 088061197 Z11.3 [id number] MD DULCE MARIA Limon MD [address] [facility] [place] [address] 06/02/2018 15:03:47 06/02/2018 16:01:40 Specialized medical examination [id number] Z01.419 Venereal d isease screening 899591192 Z11.3 [id number] MD DULCE MARIA Limon MD [address] [facility] [place] [address] 06/03/2019 15:17:09 06/03/2019 15:54:34 Specialized medical examination 93832327 Z01.419 Venereal d isease screening 369376535 Z11.3 [id number] MD DULCE MARIA Limon MD [address] [facility] [place] [address] 06/20/2020 15:04:21 06/20/2020 16:08:55 Specialized medical examination 27756776 Z01.419 Venereal d isease screening 344428191 Z11.3 Candidal vulvovaginitis 99635578 B37.3 [id number] MD DULCE MARIA Limon MD [address] [place] [address],[facility] [place] [address] 06/21/2021 07:58:56 06/21/2021 15:57:02 Specialized medical examination 25766192 Z01.419 Venereal d isease screening 862419163 Z11.3 Surveillan ce of oral contraception 168877634 Z30.41 [id number] MD DULCE MARIA Limon MD [address] [place] [address] [place] [address] 06/24/2022 08:01:05 06/24/2022 10:09:59 Specialized medical examination 36994812 Z01.419 Venereal d isease screening 894752348 Z11.3 [id number] MD DULCE MARIA Limon MD [address] [place] [address],[facility] [address] 09/20/2022 07:59:06 09/20/2022 09:36:29 Atypical squamous cells of undetermined significance on cervical Papanicolaou smear 117875413 R87.610 [id number] MD DULCE MARIA Limon MD [address] [place] [address],[facility] [place] [address] 06/25/2023 08:00:28 06/25/2023 10:12:54 Specialized medical examination 50537562 Z01.419 Venereal d isease screening 646033941 Z11.3 [id number] MD DULCE MARIA Limon MD [address] [place] [address],[facility] [place] [address] 08/10/2024 08:11:32 08/10/2024 15:40:40 Uses oral contraception 0474101 Z30.41 Specialize d medical examination 93699839 Z01.419 Venereal d isease screening 221696152 Z11.3 Health Concerns Section Related Observation LastModified by Organization Detai ls LastModified Time None Recorded Concern Status LastModified by Organization Details LastModified Time None Recorded Advance Directives Directive None Recorded Payers Insurance Date Sequence Insurance Name Policy Number Policy [place] Covered Member ID [place] Member ID Guarantor Name 06/25/2023 1 [place] [id number] Gail Caldwell [id number] Gail Caldwell 06/16/2021 1 [facility] OF [employer] (EPO) [id number] Gail Caldwell [id number] Gail Caldwell 06/16/2021 1 [place] [id number] Gail Caldwell [id number] Gail Caldwell 08/10/2024 1 [employer] Gail Caldwell [id number] Gail Caldwell 08/10/2024 1 [place] [id number] Gail Caldwell [id number] Gail Caldwell 06/24/2022 1 [place] [id number] Gail Caldwell [id number] Gail Caldwell Notes Date Note Type Note Provider Name and Address Organization Details Recorded Time 06/21/2021 text/html She is here for annual exam, does not have a partner. Doing well on OCP and elects to continue. She has not been sexuallyt active in 4 years. 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 Dulce Maria Ruelas MD [address] [facility],[address], [place], [address], [place] [facility], 06/21/2021 08:29:03 06/24/2022 text/html She is here for annual exam, does not have a partner. Doing well on OCP and elects to continue. 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 Dulce Maria Ruelas MD [address] [facility],[address], [place], [address], [facility], 06/24/2022 08:55:37 09/20/2022 text/html She is here for repeat pap after prior pap had ASCUS negative HR HPV. Dulce Maria Ruelas MD [address] [facility],[address], [place], [address], [place] - [facility], 09/20/2022 08:25:13 06/25/2023 text/html She is here for annual, doing well on OCP, not sexually active in 6 years but likes to stay on pill for dysmenorrhea relief. Still working at [facility] in PT. Note from 2022: She is here for annual exam, does not have a partner. Doing well on OCP and elects to continue. 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 Dulce Maria Ruelas MD [address] [facility],[address], [place], [address], [place] [facility], 06/25/2023 08:35:32 08/10/2024 text/html She is here for annual, doing well , on OCP for medical benefits, elects to continue. 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 Note from 2023: She is here for annual, doing well on OCP, not sexually active in 6 years but likes to stay on pill for dysmenorrhea relief. Still working at [facility] in PT. Dulce Maria Ruelas MD [address] [facility],[address], [place], [address], [place] - [facility], 08/10/2024 08:38:20 OBGyn Episode No OBEpisode recorded.
== END 2025-03-02 16:09 | disposition home or self-care (01) ==
LOC: HO.HMGAL 16:09
PROVIDERS: PCP Internal Medicine; Visit Provider Registered Nurse Emergency
DX: J30.89 Other allergic rhinitis (principal)
CPT/HCPCS: 95117; 95165

== ENCOUNTER 2025-03-30 16:16 | Outpatient (AMB) | payer BC, SELFPAY ==
--- OUTSIDE RECORDS SUMMARY | 2025-03-30 19:00 | XMS_ITS | Data Portability ---
Author Organization [place] - [facility],, DULCE MARIA RUELAS MD Address [address] [facility] [address] [place] [address] Care Team Providers Care Graphics Programmer Name Role Phone BLAYNE WALDEN Primary Care [...] pap test, thinprep, cervical 2021 022 [email or web address] [facility], Cytopathology Service, [address] [place] [address], [address], 2 08:17:00 chlamydia sp, culture, unspecifi ed specimen 2021 022 [email or web address] [facility], Cytopathology Service, [address] [place] [address], [address], 2 07:34:54 NG DNA, PCR, genital 2021 [email or web address] [facility], Cytopathology Service, [address] [place] [address], [address], 2 07:34:54 Referral None recorded. Procedures None recorded. Surgeries None recorded. Imaging None recorded. Medication Orders Vienva 0.1 mg-20 mcg tablet 2024 025 NIALL [facility], [address] [place] [address] [address], [address], 5 08:37:50 Aviane 0.1 mg-20 mcg tablet 2023 024 [email or web address] 1 [id number], [address] [place], [address], 4 08:35:19 Aviane 0.1 mg-20 mcg tablet 2022 023 GRATIOT [id number], [address] [place], [address], 3 08:54:40 Larissia 0.1 mg-20 mcg tablet 2021 022 GRATIOT [facility], [address], [facility] [address], [place], [place], [id number], 08:28:38 Patient TargetsNo targets recorded. Patient Instructions Encounter Date Encounter Id Patient Instructions Last Modified By Organization Details Last Modified Time 06/21/2021 [id number] learning about healthy weight Not available 06/21/2021 08:27:48 She is here for annual exam, does not have a partner. Doing well on OCP and elects to continue. She has not been sexuallyt active in 4 years. 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 Not available 06/21/2021 08:27:46 06/24/2022 [id number] learning about healthy weight Not available 06/24/2022 08:54:38 She is here for annual exam, does not have a partner. Doing well on OCP and elects to continue. She has not been sexually active in 5 years. 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 We [...] breast. [email or web address] Not available 06/24/2022 08:55:15 09/20/2022 [id number] abnormal Pap test: care instructions brian Not available 09/20/2022 08:24:17 She is here for repeat pap after prior pap had ASCUS negative HR HPV. Pap taken, we discussed that if repeat pap is fine then repeat at next annual, if ASCUS again then colpo. Not available 09/20/2022 08:24:52 06/25/2023 [id number] learning about healthy weight brian Not available 06/25/2023 08:35:19 She is here for annual, doing well on OCP, not sexually active in 6 years but likes to stay on pill for dysmenorrhea relief. Still working at [employer] in . ___ Note from 2022: She is here for annual exam, does not have a partner. Doing well on OCP and elects to continue. She has not been sexually active in 5 years. 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 Monthly [...] be called in to pharmacy. Not available 06/25/2023 08:34:51 08/10/2024 [id number] learning about healthy weight brian Not available 08/10/2024 08:37:48 She is here for annual, doing well , on OCP for medical benefits, elects to continue. 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 ____ Note from 2023: She is here for annual, doing well on OCP, not sexually active in 6 years but likes to stay on pill for dysmenorrhea relief. Still working at [employer] in . She appears to be doing [...] LastModifiedTime 06/21/19 22 06/21/2021 GENER AL5CA SE [id number] Chlam ydia: NEGAT CRISTOFER N. krish birch e: NEGAT CRISTOFER Compl eted on 06-25 CLINI ANASTASIIA INFOR MATIO N: HPV If Diagn osis of ASCUS . LPS 2/2/2 1 neg, z12.4 , z11.3 , z01.4 19 SOURC E: ThinP rep Pap for CT/GC Gross Descr iptio n: ThinP rep Vial Recei teressa. Physi cians BENEDICT N STAN LLGRACE/ [phone] Not Available [facility], Cytopathology Service [address] [facility], [place], [address], 06/25/2021 15:06:03 07/16/19 22 07/16/2021 PAP1C ASE [id number] ThinP rep Pap, Image d: NEGAT CRISTOFER FOR SQUAM OUS INTRA EPITH ELIAL MARLENE Burger AND NE HOUSE . Note: The Pap test is a scree janey test with an inher ent false negat cristofer rate. Autom ated presc reeni ng of all liqui d based speci mens is perfo rmed by the ThinP rep Imagi ng Tigre howell other [facility] dYung Zuniga [facility] , [place]( CP) (Case elect brandie [...] z12.4 , z01.4 19, z11.3 Not Available [facility], Cytopathology Service [address] [place], [address], 07/06/2021 17:01:15 06/24/19 23 06/26/2022 THIN PREP [...] Go To The Location Of Their Choice, [id number] 06/26/2022 13:46:51 06/24/19 23 06/26/2022 THIN PREP [...] Disea se Contr ol and Preve ntion ([facility]) recom mends confi rmato ry retes ting using cultu re or a diffe rent nucle ic acid ampli ficat ion test when posit cristofer resul ts occur , if indic ated. Not Available [facility] (Centralized Electronic Ordering - All Locations) Patient Can Go To The Location Of Their Choice, [id number] 06/26/2022 13:46:51 06/24/19 23 06/24/2022 [facility] CYTOL OGY results abnormal Patie nt Name: GAIL RUSSELL nt : 990 (Age: 31) Lab Acces wesley #: [id number] Colle ction Date: 023 Acces wesley Date: 023 Sign Out Date: 2022 Tissu e Sourc e: 1: THINP REP DOPE WORKER PAP TEST, CERVI ANASTASIIA: Final Diagn osis: [...] bermudez or denisa fragoso. Perfo rmed at [facility] ate Refer ence Labor atory depar tment of Cytol ogy, [address] [place] Clini anastasiia Histo ry (othe r): z01.4 19, z11.3 , 2 neg, routi ne scree n Prima ry Patho logis t: Jessica Mejia M.D. Phone #: [phone], On-[facility] Patho logis t: [id number] Not Available [facility] (Centralized Electronic Ordering - All Locations) Patient Can Go To The Location Of Their Choice, [id number] 07/04/2022 17:43:45 09/21/19 23 09/20/2022 CYTOL OGY (DOPE WORKER) results Lupillo nt Name: GAIL RUSSELL nt : 990 (Age: 31) Lab Acces wesley #: [id number] Colle ction Date: 023 Acces wesley Date: 023 Sign Out Date: 2022 Tissu e Sourc e: 1: THINP REP DOPE WORKER PAP TEST, CERVI ANASTASIIA: Final Diagn osis: [...] Histo ry (othe r): R87.6 10, LPS 83887 3-ASC US HPV NEG Phone #: [phone], On-Ca ll Patho logis t: [id number] Not Available [facility] (Centralized Electronic Ordering - All Locations) Patient Can Go To The Location Of Their Choice, [id number] 10/03/2022 09:40:19 06/25/19 24 06/26/2023 THIN PREP [...] Go To The Location Of Their Choice, [id number] 06/26/2023 15:10:05 06/25/19 24 06/26/2023 THIN PREP [...] Disea se Contr ol and Preve ntion ([facility]) recom mends confi rmato ry retes ting using cultu re or a diffe rent nucle ic acid ampli ficat ion test when posit cristofer resul ts occur , if indic ated. Not Available [facility] (Centralized Electronic Ordering - All Locations) Patient Can Go To The Location Of Their Choice, [id number] 06/26/2023 15:10:05 06/25/19 24 06/25/2023 [facility] CYTOL OGY results Patie nt Name: GAIL RUSSLEL nt : 990 (Age: 32) Lab Acces wesley #: [id number] Colle ction Date: 024 Acces wesley Date: 024 Sign Out Date: 2023 Tissu patrice Astudillo e: 1: THINP REP DOPE WORKER PAP TEST, CERVI ANASTASIIA: Final Diagn osis: [...] bermudez or denisa rios Perfo rmed at [facility] ate Refer ence Labor atory depar tment of Cytol ogy, [address] [place] Clini anastasiia Histo ry (othe r): z01.4 19, z11.3 , routi ne scree n, lps 5-5-2 3 neg Phone #: [phone], On-Ca ll Patho logis t: [id number] Not Available [facility] (Centralized Electronic Ordering - All Locations) Patient Can Go To The Location Of Their Choice, [id number] 07/01/2023 15:10:34 08/11/1908/11/2024 IGP, CTNG, RFX APTIM A HPV ASCU chlamydia, nuc. acid amp Negati ve negati ve Not Available [facility] ([facility]) [address] [place], [address], 08/12/2024 14:20:27 08/11/1908/11/2024 IGP, CTNG, RFX APTIM A HPV ASCU gonococcus, nuc. acid amp Negati ve negati ve Not Available [facility] ([facility]) [address] [place], [address], 08/12/2024 14:20:27 08/11/19 25 08/12/2024 IGP, CTNG, RFX APTIM A HPV ASCU diagnosis: Commmandy [place] FOR INTRA EPITH ELIAL MARLENE Burger OR NE HOUSE . Not Available [facility] ([facility]) [address] [place], [address], 08/12/2024 14:20:27 08/11/19 25 08/12/2024 IGP, CTNG, RFX APTIM A HPV ASCU specimen adequacy: Didi t Satis facto claire for evalu ation . Endoc ervic al and/o r squam ous metap lasti c cells (endo cervi anastasiia compo nent) are prese nt. Not Available [facility] ([facility]) [address] [place], [address], 08/12/2024 14:20:27 08/11/19 25 08/12/2024 IGP, CTNG, RFX APTIM A HPV ASCU clinician provided ICD10: Didi crowe Z01.4 19 Not Available [facility] ([facility]) [address] [place], [address], 08/12/2024 14:20:27 08/11/19 25 08/12/2024 IGP, CTNG, RFX APTIM A HPV ASCU performed by: Didi rangel A Prior , Cytot echmony mueller t (ASCP ) Not Available [facility] ([facility]) [address] [place], [address], 08/12/2024 14:20:27 08/11/19 25 08/12/2024 IGP, CTNG, RFX APTIM A HPV ASCU . . Not Available [facility] ([facility]) [address] [place], [address], 08/12/2024 14:20:27 08/11/19 25 08/12/2024 IGP, CTNG, [...] ts do occur . Not Available [facility] ([facility]) [address] [place], [address], 08/12/2024 14:20:27 08/11/1908/12/2024 IGP, CTNG, RFX APTIM A HPV ASCU test methodology: Commen t This liqui d based ThinP rep(R ) pap test was scree hudson with the use of an image guide d syste m. Not Available [facility] ([facility]) [address] [place], [address], 08/12/2024 14:20:27 08/11/19 25 08/12/2024 IGP, CTNG, RFX APTIM A HPV ASCU . Commen t The HPV DNA refle x crite alisha were not met with this speci men resul t there fore, no HPV testi ng was perfo rmed. Not Available [facility] ([facility]) [address] [place], [address], 08/12/2024 14:20:27 Result Notes None recorded. Problems No Known Problems Procedures Surgical History Date Name Laterality Status Provider Name and Address Organization Details Recorded Time 08/18/2015 Other completed Griselda Fonseca in [facility], 04/15/2016 13:40:32 05/19/2014 Other completed Griselda Lucas [place] - Raymundo in [facility], 04/15/2016 13:40:20 Imaging Results None recorded. Procedure Notes None recorded. Medical Equipment None Reported. Allergies Allergen ID Allergen Name Allergen Category Reaction Reaction Severity Criticality Documentation Date Start Date Code Code System Note Provider Name and Address Organization Details Recorded Time 30640 Substance with sulfonami de structure and antibacte rial mechanism of action (substanc e) medicatio n rash severe Not available 04/15/2016 49087 8003 SNMOHSEN Villalobos Shayy valladares [place] - [...] Address Organization Details Last Updated DateTime 2 94102.7 g 25.8 kg/m2 172.72 cm 97.4 [degF] 82 /min 126/79 mm[Hg] Griselda Fonseca in [facility], 2 08:02:21 Date Recorded Body temperature Heart rate Body weight Body mass index (BMI) Body height Systolic And Diastolic Provider Name and Address Organization Details Last Updated DateTime 3 97.2 [degF] 87 /min 35034.8 9 g 26.2 kg/m2 172.72 cm 128/70 mm[Hg] Griselda Fonseca in [facility], 3 08:05:35 Date Recorded Body height Body mass index (BMI) Body weight Heart rate Body temperature Systolic And Diastolic Provider Name and Address Organization Details Last Updated DateTime 4 172.72 cm 26.2 kg/m2 27769.6 1 g 85 /min 97.4 [degF] 122/70 mm[Hg] Griselda Fonseca in [facility], 4 08:12:04 Date Recorded Body height Body mass index (BMI) Body weight Heart rate Systolic And Diastolic Provider Name and Address Organization Details Last Updated DateTime 08/10/2024 172.72 cm 25.7 kg/m2 19793.47 g 79 /min 123/78 mm[Hg] Griselda Fonseca in [facility], 08/10/2024 08:16:28 Date Recorded Body height Body mass index (BMI) Body weight Body temperature Heart rate Systolic And Diastolic Provider Name and Address Organization Details Last Updated DateTime 3 172.72 cm 26.1 kg/m2 61087.7 3 g 97.4 [degF] 82 /min 128/70 mm[Hg] Griselda Piper [facility], 08:03:00 Social History Question Answer Notes LastModified by Organizat ion Details LastModified Time Tobacco Smoking Status Never Smoker CONSTANTIN Levin in [facility], 04/15/2016 13:38:04 How Many Years Have You [...] Or The Highest Degree You Have Received? 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 Never used electronic cigarettes Information not available 06/03/2019 What is your exercise level? Occasional Information not available 04/15/2016 Mental Status Question Answer Note LastModified by Organization D etails LastModified Time Do you feel stressed (tense, restless, nervous, or anxious, or unable to sleep at night)? [id number] Information not available 06/21/2021 Family History Relationship Description Onset Age of this Age Resolved Age Notes LastModified by Organization Details LastModified Time Father Problem copd [email or web address] Not available 04/15/2016 13:37:40 Mother Heart disease [email or web address] Not available 2024 08:18:03 Medical History Condition Response Anesthesia complications N High Blood Pressure N Candidate for MyRisk panel N Autoimmune Condition N Lung Disease N Depression N Defects or Inherited Disease N History of Ovarian Cancer N BRCA testing in past N Anxiety Disorder N Arthritis N Infertility N History of Cancer N Endometriosis N Thyroid Problems N Kidney or Bladder Problems N GI Problems N Anemia N History of Breast Cancer N BRANDI exposure N Osteopenia N Psychiatric Illness N Diabetes N Headaches or Migraines N Asthma N Hepatitis N Heart Disease N Hypertension [...] quadrivalent, preservative 7 completed CONSTANTIN Smallwood in [facility], 02/19/2023 08:45:56 Influenza, split virus, quadrivalent, preservative 8 completed CONSTANTIN [place] in [facility], 02/19/2023 08:45:56 Influenza, split virus, quadrivalent, preservative 9 completed CONSTANTIN [place] in [facility], 02/19/2023 08:45:56 Influenza, split virus, quadrivalent, preservative 0 completed CONSTANTIN [place] in [facility], 02/19/2023 08:45:56 COVID-19, mRNA, LNP-S, PF, 100 mcg/0.5mL dose or 50 mcg/0.25mL dose 1 completed Irma Maria Isabel null, [place] - [facility], 02/19/2023 08:45:56 influenza, unspecified formulation 2 completed Irma Nicolas null, [place] - [facility], 02/19/2023 08:45:56 COVID-19, mRNA, LNP-S, PF, sebastian-sucrose, 30 mcg/0.3 mL 3 completed Irma Nicolas null, [place] - [facility], 02/19/2023 08:45:56 Influenza, split virus, quadrivalent, preservative 1 completed Griselda Meczywor null, [place] - [facility], 08/10/2024 08:16:15 MMR 5 completed Griselda Meczywor null, [place] - [facility], 08/10/2024 08:16:15 MMR 1 completed Griselda Meczywor null, [place] - [facility], 08/10/2024 08:16:15 COVID-19, mRNA, LNP-S, PF, 100 mcg/0.5mL dose or 50 mcg/0.25mL dose 1 completed Griselda Meczywor null, [place] - [facility], 08/10/2024 08:16:15 COVID-19, mRNA, LNP-S, [...] Griselda Meczywor null, [place] - [facility], 08/10/2024 08:16:15 Tdap 6 completed [...] completed Griselda valladares [place] - [facility], 08/10/2024 08:16:15 Past Encounters Encounter ID Performer Location Encounter Start Date Encounter Closed Date Diagnosis/Indication Diagnosis SNOMED-CT Code Diagnosis ICD10 Code Diagnosis IMO Codes Diagnosis Note [id number] MD DULCE MARIA Limon MD [address] [facility] [address] [place] [address] 04/15/2016 13:17:19 04/15/2016 15:47:11 Specialized medical examination 56029763 Z01.419 Venereal d isease screening 487069621 Z11.3 [id number] MD DULCE MARIA Limon MD [address] [facility] [address] [place] [address] 06/02/2017 09:48:15 06/02/2017 11:22:49 Specialized medical examination 71413355 Z01.419 Venereal d isease screening 157607367 Z11.3 [id number] MD DULCE MARIA Limon MD [address] [facility] [address] [place] [address] 06/02/2018 15:03:47 06/02/2018 16:01:40 Specialized medical examination 53703262 Z01.419 Venereal d isease screening 824332927 Z11.3 [id number] MD DULCE MARIA Limon MD [address] [facility] [address] [place] [address] 06/03/2019 15:17:09 06/03/2019 15:54:34 Specialized medical examination 14931730 Z01.419 Venereal d isease screening 855110531 Z11.3 [id number] MD DULCE MARIA Limon MD [address] [facility] [address] [place] [address] 06/20/2020 15:04:21 06/20/2020 16:08:55 Specialized medical examination 95331798 Z01.419 Venereal d isease screening 126456819 Z11.3 Candidal vulvovaginitis 45153119 B37.3 [id number] MD DULCE MARIA Limon MD [address] [place] [address],[facility] [place] [address] 06/21/2021 07:58:56 06/21/2021 15:57:02 Specialized medical examination 74048360 Z01.419 Venereal d isease screening 591874527 Z11.3 Surveillan ce of oral contraception 503605430 Z30.41 [id number] MD DULCE MARIA Limon MD [address] [place] [address] [place] [address] 06/24/2022 08:01:05 06/24/2022 10:09:59 Specialized medical examination 68674829 Z01.419 Venereal d isease screening 143769856 Z11.3 [id number] MD DULCE MARIA Limon MD [address] [place] [address],[facility] [place] [address] 09/20/2022 07:59:06 09/20/2022 09:36:29 Atypical squamous cells of undetermined significance on cervical Papanicolaou smear 454136258 R87.610 [id number] MD DULCE MARIA Limon MD [address] [place] [address],[facility] [place] [address] 06/25/2023 08:00:28 06/25/2023 10:12:54 Specialized medical examination 34461789 Z01.419 Venereal d isease screening 881141389 Z11.3 [id number] MD DULCE MARIA Limon MD [address] [place] [address],[facility] [place] [address] 08/10/2024 08:11:32 08/10/2024 15:40:40 Uses oral contraception 6001213 Z30.41 Specialize d medical examination 90502841 Z01.419 Venereal d isease screening 652215420 Z11.3 Health Concerns Section Related Observation LastModified by Organization Detai ls LastModified Time None Recorded Concern Status LastModified by Organization Details LastModified Time None Recorded Advance Directives Directive None Recorded Payers Insurance Date Sequence Insurance Name Policy Number Policy [place] Covered Member ID [place] Member ID Guarantor Name 06/25/2023 1 [place] [id number] Gail Caldwell [id number] Gail Caldwell 06/16/2021 1 [facility] [employer] (EPO) [id number] Gail Caldwell [id number] Gail Caldwell 06/16/2021 1 [place] [id number] Gail Caldwell [id number] Gail Caldwell 08/10/2024 1 [employer] Gail Caldwell [id number] Gail Caldwell 08/10/2024 1 [place] [id number] Gail Caldwell [id number] Gail Caldwell 06/24/2022 1 [place] [id number] Gail Caldwell [id number] Gail Caldwell Notes Date Note Type Note [...] home visits. Dulce Maria Ruelas MD [address] [facility], [place], [address], [place] - [facility], 06/21/2021 08:29:03 06/24/2022 text/html She is here for annual exam, does not have a partner. Doing well on OCP and elects to continue. 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 Dulce Maria Ruelas MD [address] [facility],[address], [place], [address], [facility] - [facility], 06/24/2022 08:55:37 09/20/2022 text/html She is here for repeat pap after prior pap had ASCUS negative HR HPV. Dulce Maria Ruelas MD [address] [facility],[address], [place], [address], [place] - [facility], 09/20/2022 08:25:13 06/25/2023 text/html She is here for annual, doing well on OCP, not sexually active in 6 years but likes to stay on pill for dysmenorrhea relief. Still working at [employer] in [place]. Note from 2022: She is here for annual exam, does not have a partner. Doing well on OCP and elects to continue. 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 Dulce Maria Ruelas MD [address] [facility],[address], [place], [address], [place] - [facility], 06/25/2023 08:35:32 08/10/2024 text/html She is here for annual, doing well , on OCP for medical benefits, elects to continue. 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 Note from 2023: She is here for annual, doing well on OCP, not sexually active in 6 years but likes to stay on pill for dysmenorrhea relief. Still working at [employer] in [place]. Dulce Maria Ruelas MD [address] [facility],[address], [place], [address], [place] - [facility], 08/10/2024 08:38:20 OBGyn Episode No OBEpisode recorded.
--- OUTSIDE RECORDS SUMMARY | 2025-03-30 19:00 | XMS_ITS | Clinical Summary ---
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 For example, vocational childcare teacher or elderly care for an older [...] AM EDT Office Visit Adult Medicine - [facility] [address] [place] [phone] Alva Ibrahim MD [address] [place] [address] Health Maintenance Due Date Last Done Comments [...] free t3 (01/13/2025 8:44 AM EDT) Pathologist [facility] TSH 1.56 0.40 - 4.00 mcIU/mL LAB CHEMISTRY METHOD 01/13/2025 1:00 PM EDT [facility] Blood Venous blood specimen / Unknown Venipuncture / Unknown 01/13/2025 8:44 AM EDT 01/13/2025 8:44 AM EDT us Alva Ibrahim MD LAB BLOOD ORDERABL ES Final Result [facility] [address] [place] [address], [place] [phone] * (ABNORMAL) Lipid panel with reflex to direct LDL (01/13/2025 8:44 AM EDT) [facility] Cholesterol 198 0 - 200 mg/dL LAB CHEMISTRY METHOD 01/13/2025 12:13 PM EDT [facility] Triglycerides 100 0 - 150 mg/dL LAB CHEMISTRY METHOD 01/13/2025 12:13 PM T [facility] HDL 68 >=40 mg/dL LAB CHEMISTRY METHOD 01/13/2025 12:13 PM EDT [facility] LDL Calculated 110(H) 0 - 100 mg/dL LAB CHEMISTRY METHOD 01/13/2025 12:13 PM T [facility] Comment:Estimated LDL Calcul ated using equation: Total cholesterol - HDL cholesterol - (Triglycerides/5) VLDL Cholesterol Darrel 20 mg/dL LAB CHEMISTRY METHOD 01/13/2025 12:13 PM [facility] Non HDL Chol. (LDL+VLDL) 130 <145 mg/dL LAB CHEMISTRY METHOD 01/13/2025 12:13 PM EDT [facility] Chol/HDL Ratio 2.9 0.0 - 4.4 LAB CHEMISTRY METHOD 01/13/2025 12:13 PM EDT [facility] Blood Venous blood specimen / Unknown Venipuncture / Unknown 01/13/2025 8:44 AM EDT 01/13/2025 8:44 AM EDT us Alva Ibrahim MD LAB BLOOD ORDERABL ES Final Result [facility] [address] [place] [address], * (ABNORMAL) CBC auto differential (01/13/2025 8:44 AM EDT) WBC 4.9 4.8 - 10.8 K/mcL LAB HEMETOLOGY METHOD 01/13/2025 11:44 AM EDT [facility] RBC 4.50 3.80 - 4.80 [facility] LAB HEMETOLOGY METHOD 01/13/2025 11:44 AM EDT [facility] Hemoglobin 12.6 11.5 - 16.0 g/dL LAB HEMETOLOGY METHOD 01/13/2025 11:44 AM EDT [facility] Hematocrit 39.4 35.0 - 47.0 % LAB HEMETOLOGY METHOD 01/13/2025 11:44 AM EDT [facility] MCV 87.9 79.0 - 98.0 FL LAB HEMETOLOGY METHOD 01/13/2025 11:44 AM EDT [facility] MCH 28.1 27.0 - 32.0 pcg LAB HEMETOLOGY METHOD 01/13/2025 11:44 AM EDT [facility] MCHC 32.0 32.0 - 37.0 g/dL LAB HEMETOLOGY METHOD 01/13/2025 11:44 AM EDT [facility] RDW 12.6 11.0 - 15.0 % LAB HEMETOLOGY METHOD 01/13/2025 11:44 AM [facility] Platelets 334 130 - 400 K/mcL LAB HEMETOLOGY METHOD 01/13/2025 11:44 AM [facility] MPV 10.0 7.0 - 11.0 FL LAB HEMETOLOGY METHOD 01/13/2025 11:44 AM [facility] NRBC 0.0 <1.0 % LAB HEMETOLOGY METHOD 01/13/2025 11:44 AM [facility] NRBC Absolute 0.00 <0.10 K/mcL LAB HEMETOLOGY METHOD 01/13/2025 11:44 AM [facility] Neutrophils Relative 52.1 % LAB HEMETOLOGY METHOD 01/13/2025 11:44 AM [facility] Lymphocytes Relative 34.8 % LAB HEMETOLOGY METHOD 01/13/2025 11:44 AM [facility] Monocytes Relative 7.8 % LAB HEMETOLOGY METHOD 01/13/2025 11:44 AM [facility] Eosinophils Relative 3.5 % LAB HEMETOLOGY METHOD 01/13/2025 11:44 AM [facility] Basophils Relative 1.0 % LAB HEMETOLOGY METHOD 01/13/2025 11:44 AM [facility] Immature Granulocytes Relative 0.8 % LAB HEMETOLOGY METHOD 01/13/2025 11:44 AM [facility] Neutrophils Absolute 2.54 1.50 - 7.00 K/mcL LAB HEMETOLOGY METHOD 01/13/2025 11:44 AM [facility] Lymphocytes Absolute 1.70 1.00 - 5.00 K/mcL LAB HEMETOLOGY METHOD 01/13/2025 11:44 AM [facility] Monocytes Absolute 0.38 0.20 - 1.00 K/mcL LAB HEMETOLOGY METHOD 01/13/2025 11:44 AM EDT [facility] Eosinophils Absolute 0.17 0.00 - 0.50 K/mcL LAB HEMETOLOGY METHOD 01/13/2025 11:44 AM EDT [facility] Basophils Absolute 0.05 0.00 - 0.20 K/mcL LAB HEMETOLOGY METHOD 01/13/2025 11:44 AM EDT [facility] Immature Granulocytes Absolute 0.04(H) 0.00 - 0.03 K/mcL LAB HEMETOLOGY METHOD 01/13/2025 11:44 AM EDT [facility] Blood Venous blood specimen / Unknown Venipuncture / Unknown 01/13/2025 8:44 AM EDT 01/13/2025 8:44 AM EDT Alva Ibrahim MD LAB BLOOD ORDERABL ES Final Result [facility] [address] [place] [address], * Comprehensive metabolic panel (01/13/2025 8:44 AM EDT) Sodium 137 133 - 145 mmol/L LAB CHEMISTRY METHOD 01/13/2025 12:13 PM [facility] Potassium 4.4 3.5 - 5.5 mmol/L LAB CHEMISTRY METHOD 01/13/2025 12:13 PM [facility] Chloride 104 96 - 110 mmol/L LAB CHEMISTRY METHOD 01/13/2025 12:13 PM [facility] CO2 28 21 - 32 mmol/L LAB CHEMISTRY METHOD 01/13/2025 12:13 PM [facility] Anion Gap 5 3 - 11 LAB CHEMISTRY METHOD 01/13/2025 12:13 PM [facility] Glucose 87 70 - 100 mg/dL LAB CHEMISTRY METHOD 01/13/2025 12:13 PM [facility] BUN 10 5 - 25 mg/dL LAB CHEMISTRY METHOD 01/13/2025 12:13 PM [facility] Creatinine 0.74 0.50 - 1.10 mg/dL LAB CHEMISTRY METHOD 01/13/2025 12:13 PM [facility] eGFR 108 >=60 mL/min/1. 73m2 LAB CHEMISTRY METHOD 01/13/2025 12:13 PM [facility] Comment:Calculation based on the Chronic Kidney Disease Epidemiology Collaboration (CKD-EPI) equation refit without adjustment for race. BUN/Creatinine Ratio 13.5 LAB CHEMISTRY METHOD 01/13/2025 12:13 PM [facility] Calcium 9.3 8.5 - 10.5 mg/dL LAB CHEMISTRY METHOD 01/13/2025 12:13 PM [facility] AST (SGOT) 19 10 - 42 unit/L LAB CHEMISTRY METHOD 01/13/2025 12:13 PM [facility] ALT (SGPT) 24 10 - 60 unit/L LAB CHEMISTRY METHOD 01/13/2025 12:13 PM [facility] Alkaline Phosphatase 58 42 - 121 unit/L LAB CHEMISTRY METHOD 01/13/2025 12:13 PM [facility] Total Protein 7.7 6.0 - 8.0 g/dL LAB CHEMISTRY METHOD 01/13/2025 12:13 PM [facility] Albumin 3.7 3.2 - 5.0 g/dL LAB CHEMISTRY METHOD 01/13/2025 12:13 PM [facility] Total Bilirubin 0.5 0.0 - 1.4 mg/dL LAB CHEMISTRY METHOD 01/13/2025 12:13 PM [facility] Blood Venous blood specimen / Unknown Venipuncture / Unknown 01/13/2025 8:44 AM EDT 01/13/2025 8:44 AM EDT Alva Ibrahim MD LAB BLOOD ORDERABL ES Final Result [facility] ([facility] [address] [place] [address], * Pap Smear (01/05/2024) HM Pap smear no interpretation , abstracted Historical Provider HEALTH MAINTENANCE Final Result from Last 3 Months or Most Recently Relevant to Health Maintenance Insurance [facility] Care Teams Tire Recapping Machine Operator Relationship Specialty Start Date End Date Alva Ibrahim MD [address] [place] [address] [place] [id number] PCP - General Internal Medicine 12/23/24
== END 2025-03-30 16:16 | disposition home or self-care (01) ==
LOC: HO.HMGAL 16:16
PROVIDERS: PCP Internal Medicine; Visit Provider Registered Nurse Emergency
DX: J30.89 Other allergic rhinitis (principal)
CPT/HCPCS: 95117; 95165

== ENCOUNTER 2025-04-25 16:19 | Outpatient (AMB) | payer BC, SELFPAY ==
--- OUTSIDE RECORDS SUMMARY | 2025-04-26 01:51 | XMS_ITS | Data Portability ---
Author Organization [place] - [facility],, DULCE MARIA RUELAS MD Address [address] [facility] [address] [place] [address] Care Team Providers Care Trip Follower Name Role Phone BLAYNE WALDEN Primary Care [...] pap test, thinprep, cervical 2021 022 [email or web address] [facility] Cyt[facility] Service, [address] [place] [address], [address], 2 08:17:00 chlamydia sp, culture, unspecifi ed specimen 2021 022 [email or web address] [facility], [address] [place] [address], [address], 2 07:34:54 NG DNA, PCR, genital 2021 022 [email or web address] [facility], Cytopathology Service, [address] [place] [address], [address], 2 07:34:54 Referral None recorded. Procedures None recorded. Surgeries None recorded. Imaging None recorded. Medication Orders Vienva 0.1 mg-20 mcg tablet 2024 025 [facility], [address] [place] [address], [address], 5 08:37:50 Aviane 0.1 mg-20 mcg tablet 2023 024 [email or web address] 1 [id number], [address] [place], [address], 4 08:35:19 Aviane 0.1 mg-20 mcg tablet 2022 023 [id number], [address] [place], [address], 3 08:54:40 Larissia 0.1 mg-20 mcg tablet 2021 022 WELLS [facility], [address], [facility] [address], [place], [place], [id number], 08:28:38 Patient TargetsNo targets recorded. Patient Instructions Encounter Date Encounter Id Patient Instructions Last Modified By Organization Details Last Modified Time 06/21/2021 [id number] learning about healthy weight Not available 06/21/2021 08:27:48 She is here for annual exam, does not have a partner. Doing well on OCP and elects to continue. She has not been sexuallyt active in 4 years. 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 Not available 06/21/2021 08:27:46 06/24/2022 [id number] learning about healthy weight Not available 06/24/2022 08:54:38 She is here for annual exam, does not have a partner. Doing well on OCP and elects to continue. She has not been sexually active in 5 years. 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 We [...] breast. [email or web address] Not available 06/24/2022 08:55:15 09/20/2022 [id number] abnormal Pap test: care instructions brian Not available 09/20/2022 08:24:17 She is here for repeat pap after prior pap had ASCUS negative HR HPV. Pap taken, we discussed that if repeat pap is fine then repeat at next annual, if ASCUS again then colpo. Not available 09/20/2022 08:24:52 06/25/2023 [id number] learning about healthy weight brian Not available 06/25/2023 08:35:19 She is here for annual, doing well on OCP, not sexually active in 6 years but likes to stay on pill for dysmenorrhea relief. Still working at [employer] in . ___ Note from 2022: She is here for annual exam, does not have a partner. Doing well on OCP and elects to continue. She has not been sexually active in 5 years. 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 Monthly [...] to pharmacy. Not available 06/25/2023 08:34:51 08/10/2024 [id number] learning about healthy weight brian Not available 08/10/2024 08:37:48 She is here for annual, doing well , on OCP for medical benefits, elects to continue. 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 ____ Note from 2023: She is here for annual, doing well on OCP, not sexually active in 6 years but likes to stay on pill for dysmenorrhea relief. Still working at [employer] in . She appears to be doing [...] LastModifiedTime 06/21/19 22 06/21/2021 GENER AL5CA SE [id number] Chlam ydia: NEGAT CRISTOFER N. krish birch e: NEGAT CRISTOFER Compl eted on 06-25 CLINI ANASTASIIA INFOR MATIO N: HPV If Diagn osis of ASCUS . LPS 2/2/2 1 neg, z12.4 , z11.3 , z01.4 19 SOURC E: ThinP rep Pap for CT/GC Gross Descr iptio n: ThinP rep Vial Recei teressa. Physi cians BENEDICT N STAN LLGRACE/ [phone] Not Available [facility] [address] [facility], [place], [address], 06/25/2021 15:06:03 07/16/19 22 07/16/2021 PAP1C ASE [id number] ThinP rep Pap, Image d: NEGAT CRISTOFER FOR SQUAM OUS INTRA EPITH ELIAL MARLENE Burger AND NE HOUSE . Note: The Pap test is a scree janey test with an inher ent false negat cristofer rate. Autom ated presc reeni ng of all liqui d based speci mens is perfo rmed by the ThinP rep Imagi ng Tirge howell other [facility] dYung Zuniga [facility] , [place]( CP) (Case elect brandie lamb anusha d 07 06 2021) ADEQU ACY: Satis facto ry Endoc ervic al/tr ansfo rmati on zone compo nent prese nt. SOURC E: ThinP rep Pap HPV IF ASCUS , Cervi anastasiia, Image d CLINI ANASTASIIA INFOR MATIO N: HPV If Diagn osis of ASCUS . lps 1 neg. z12.4 , z01.4 19, z11.3 Not Available [facility] [address] [place], [address], 07/06/2021 17:01:15 06/24/19 23 06/26/2022 THIN PREP [...] Go To The Location Of Their Choice, [id number] 06/26/2022 13:46:51 06/24/19 23 06/26/2022 THIN PREP [...] Disea se Contr ol and Preve ntion ([facility]) recom mends confi rmato ry retes ting using cultu re or a diffe rent nucle ic acid ampli ficat ion test when posit cristofer resul ts occur , if indic ated. Not Available [facility] (Centralized Electronic Ordering - All Locations) Patient Can Go To The Location Of Their Choice, [id number] 06/26/2022 13:46:51 06/24/19 23 06/24/2022 [facility] CYTOL OGY results abnormal Patie nt Name: GAIL RUSSELL nt : 990 (Age: 31) Lab Acces wesley #: [id number] Colle ction Date: 023 Acces wesley Date: 023 Sign Out Date: 2022 Tissu e Sourc e: 1: THINP REP CASH TELLER PAP TEST, CERVI ANASTASIIA: Final Diagn osis: [...] bermudez or denisa fragoso. Perfo rmed at [facility] ate Refer ence Labor atory depar tment of Cytol ogy, [address] [place] Clini anastasiia Histo ry (othe r): z01.4 19, z11.3 , 2 neg, routi ne scree n Prima ry Patho logis t: Jessica Mejia M.D. Phone #: [phone], On-[facility] Patho logis t: [id number] Not Available [facility] (Centralized Electronic Ordering - All Locations) Patient Can Go To The Location Of Their Choice, [id number] 07/04/2022 17:43:45 09/21/19 23 09/20/2022 CYTOL OGY (CASH TELLER) results Lupillo nt Name: GAIL RUSSELL nt : 990 (Age: 31) Lab Acces wesley #: [id number] Colle ction Date: 023 Acces wesley Date: 023 Sign Out Date: 2022 Tissu e Sourc e: 1: THINP REP CASH TELLER PAP TEST, CERVI ANASTASIIA: Final Diagn osis: [...] Histo ry (othe r): R87.6 10, LPS 09589 3-ASC US HPV NEG Phone #: [phone], On-Ca ll Patho logis t: [id number] Not Available [facility] (Centralized Electronic Ordering - All Locations) Patient Can Go To The Location Of Their Choice, [id number] 10/03/2022 09:40:19 06/25/19 24 06/26/2023 THIN PREP [...] Go To The Location Of Their Choice, [id number] 06/26/2023 15:10:05 06/25/19 24 06/26/2023 THIN PREP [...] neede d. Conta ct phone numbe r [phone]. Thera peuti c failu re or succe ss canno t be deter mined with the Aptim a Combo 2 assay since nucle ic acid may persi st follo wing appro priat e antim icrob ial thera py. The Cente rs for Disea se Contr ol and Preve ntion ([facility]) recom mends confi rmato ry retes ting using cultu re or a diffe rent nucle ic acid ampli ficat ion test when posit cristofer resul ts occur , if indic ated. Not Available [facility] (Centralized Electronic Ordering - All Locations) Patient Can Go To The Location Of Their Choice, [id number] 06/26/2023 15:10:05 06/25/19 24 06/25/2023 [facility] CYTOL [facility] results Patie nt Name: GAIL RUSSELL nt : 990 (Age: 32) Lab Acces wesley #: [id number] Colle ction Date: 024 Acces wesley Date: 024 Sign Out Date: 2023 Tissu patrice Astudillo e: 1: THINP REP CASH TELLER PAP TEST, CERVI ANASTASIIA: Final Diagn osis: [...] bermudez or denisa rios Perfo rmed at [facility] ate Refer ence Labor atory depar tment of Cytol ogy, [address] [place] Clini anastasiia Histo ry (othe r): z01.4 19, z11.3 , routi ne scree n, lps 5-5-2 3 neg Phone #: [phone], On-Ca ll Patho logis t: [id number] Not Available [facility] (Centralized Electronic Ordering - All Locations) Patient Can Go To The Location Of Their Choice, [id number] 07/01/2023 15:10:34 08/11/1908/11/2024 IGP, CTNG, RFX APTIM A HPV ASCU chlamydia, nuc. acid amp Negati ve negati ve Not Available [facility] ([facility]) [address] [place], [address], 08/12/2024 14:20:27 08/11/1908/11/2024 IGP, CTNG, RFX APTIM A HPV ASCU gonococcus, nuc. acid amp Negati ve negati ve Not Available [facility] ([facility]) [address] [place], [address], 08/12/2024 14:20:27 08/11/19 25 08/12/2024 IGP, CTNG, RFX APTIM A HPV ASCU diagnosis: Commmandy [place] FOR INTRA EPITH ELIAL MARLENE Burger OR NE HOUSE . Not Available [facility] ([facility]) [address] [place], [address], 08/12/2024 14:20:27 08/11/19 25 08/12/2024 IGP, CTNG, RFX APTIM A HPV ASCU specimen adequacy: Didi t Satis facto claire for evalu ation . Endoc ervic al and/o r squam ous metap lasti c cells (endo cervi anastasiia compo nent) are prese nt. Not Available [facility] ([facility]) [address] [place], [address], 08/12/2024 14:20:27 08/11/19 25 08/12/2024 IGP, CTNG, RFX APTIM A HPV ASCU clinician provided ICD10: Didi crowe Z01.4 19 Not Available [facility] ([facility]) [address] [place], [address], 08/12/2024 14:20:27 08/11/19 25 08/12/2024 IGP, CTNG, RFX APTIM A HPV ASCU performed by: Didi rangel A Prior , Cytot echmony mueller t (ASCP ) Not Available [facility] ([facility]) [address] [place], [address], 08/12/2024 14:20:27 08/11/19 25 08/12/2024 IGP, CTNG, RFX APTIM A HPV ASCU . . Not Available [facility] ([facility]) [address] [place], [address], 08/12/2024 14:20:27 08/11/19 25 08/12/2024 IGP, CTNG, [...] ts do occur . Not Available [facility] ([facility]) [address] [place], [address], 08/12/2024 14:20:27 08/11/1908/12/2024 IGP, CTNG, RFX APTIM A HPV ASCU test methodology: Commen t This liqui d based ThinP rep(R ) pap test was scree hudson with the use of an image guide d syste m. Not Available [facility] ([facility]) [address] [place], [address], 08/12/2024 14:20:27 08/11/19 25 08/12/2024 IGP, CTNG, RFX APTIM A HPV ASCU . Commen t The HPV DNA refle x crite alisha were not met with this speci men resul t there fore, no HPV testi ng was perfo rmed. Not Available [facility] ([facility]) [address] [place], [address], 08/12/2024 14:20:27 Result Notes None recorded. Problems No Known Problems Procedures Surgical History Date Name Laterality Status Provider Name and Address Organization Details Recorded Time 08/18/2015 Other completed Griselda Fonseca in [facility], 04/15/2016 13:40:32 05/19/2014 Other completed Griselda Lucas [place] - Raymundo in [facility], 04/15/2016 13:40:20 Imaging Results None recorded. Procedure Notes None recorded. Medical Equipment None Reported. Allergies Allergen ID Allergen Name Allergen Category Reaction Reaction Severity Criticality Documentation Date Start Date Code Code System Note Provider Name and Address Organization Details Recorded Time 68917 Substance with sulfonami de structure and antibacte rial mechanism of action (substanc e) medicatio n rash severe Not available 04/15/2016 54837 8003 SNMOHSEN Villalobos Shayy valladares [place] [facility], 6 13:35:20 Medications Name Sig Start Date Stop Date Status Note LastModified by Organization Details LastModified Time sronyx 0.1-20 mg-mcg tabs 06/20 completed Not Available Not Available Not Available larissia 0.1-20 mg-mcg tabs 06/03 completed Not [...] Address Organization Details Last Updated DateTime 2 62959.7 g 25.8 kg/m2 172.72 cm 97.4 [degF] 82 /min 126/79 mm[Hg] Griselda Fonseca in [facility], 2 08:02:21 Date Recorded Body temperature Heart rate Body weight Body mass index (BMI) Body height Systolic And Diastolic Provider Name and Address Organization Details Last Updated DateTime 3 97.2 [degF] 87 /min 89384.8 9 g 26.2 kg/m2 172.72 cm 128/70 mm[Hg] Griselda Fonseca in [facility], 3 08:05:35 Date Recorded Body height Body mass index (BMI) Body weight Heart rate Body temperature Systolic And Diastolic Provider Name and Address Organization Details Last Updated DateTime 4 172.72 cm 26.2 kg/m2 38346.6 1 g 85 /min 97.4 [degF] 122/70 mm[Hg] Griselda Fonseca in [facility], 4 08:12:04 Date Recorded Body height Body mass index (BMI) Body weight Heart rate Systolic And Diastolic Provider Name and Address Organization Details Last Updated DateTime 08/10/2024 172.72 cm 25.7 kg/m2 69943.47 g 79 /min 123/78 mm[Hg] Griselda Fonseca in [facility], 08/10/2024 08:16:28 Date Recorded Body height Body mass index (BMI) Body weight Body temperature Heart rate Systolic And Diastolic Provider Name and Address Organization Details Last Updated DateTime 3 172.72 cm 26.1 kg/m2 70084.7 3 g 97.4 [degF] 82 /min 128/70 mm[Hg] Griselda Piper [facility], 08:03:00 Social History Question Answer Notes LastModified by Organizat ion Details LastModified Time Tobacco Smoking Status Never Smoker [place] Levin in [facility], 04/15/2016 13:38:04 How Many Years Have You [...] Or The Highest Degree You Have Received? 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 Information not available 04/15/2016 Do you or have you ever used e-cigarettes or vape? Never used electronic cigarettes Information not available 06/03/2019 What is your exercise level? Occasional Information not available 04/15/2016 Mental Status Question Answer Note LastModified by Organization D etails LastModified Time Do you feel stressed (tense, restless, nervous, or anxious, or unable to sleep at night)? [id number] Information not available 06/21/2021 Family History Relationship [...] Problems N Kidney or Bladder Problems N Depression N GI Problems N Lung Disease N Defects or Inherited Disease N Anemia N History of Ovarian Cancer N History of Breast Cancer N BRANDI exposure N BRCA testing in past N Osteopenia N Psychiatric Illness N Diabetes N Anxiety Disorder N Arthritis N Headaches or Migraines N [...] quadrivalent, preservative 7 completed CONSTANTIN Smallwood in [facility], 02/19/2023 08:45:56 Influenza, split virus, quadrivalent, preservative 8 completed CONSTANTIN [place] in [facility], 02/19/2023 08:45:56 Influenza, split virus, quadrivalent, preservative 9 completed [place] in [facility], 02/19/2023 08:45:56 Influenza, split virus, quadrivalent, preservative 0 completed [place] in [facility], 02/19/2023 08:45:56 COVID-19, mRNA, LNP-S, PF, 100 [...] Griselda Meczywor null, [place] - [facility], 08/10/2024 08:16:15 MMR 5 completed Griselda Meczywor null, [place] [facility], 08/10/2024 08:16:15 MMR 1 completed Griselda Meczywor null, [place] - [facility], 08/10/2024 08:16:15 COVID-19, mRNA, LNP-S, PF, 100 mcg/0.5mL dose or 50 mcg/0.25mL dose 1 completed Griselda Meczywor null, [place] - [facility], 08/10/2024 08:16:15 COVID-19, mRNA, LNP-S, [...] Griselda Meczywor null, [place] [facility], 08/10/2024 08:16:15 Tdap 6 completed Griselda [...] completed Griselda valladares [place] - [facility], 08/10/2024 08:16:15 Past Encounters Encounter ID Performer Location Encounter Start Date Encounter Closed Date Diagnosis/Indication Diagnosis SNOMED-CT Code Diagnosis ICD10 Code Diagnosis IMO Codes Diagnosis Note [id number] MD DULCE MARIA Limon MD [address] [facility] [address] [place] [address] 04/15/2016 13:17:19 04/15/2016 15:47:11 Specialized medical examination 59076157 Z01.419 Venereal d isease screening 537530453 Z11.3 [id number] MD DULCE MARIA Limon MD [address] [facility] [address] [place] [address] 06/02/2017 09:48:15 06/02/2017 11:22:49 Specialized medical examination 02250347 Z01.419 Venereal d isease screening 101812206 Z11.3 [id number] MD DULCE MARIA Limon MD [address] [facility] [address] [place] [address] 06/02/2018 15:03:47 06/02/2018 16:01:40 Specialized medical examination 34052003 Z01.419 Venereal d isease screening 964295504 Z11.3 [id number] MD DULCE MARIA Limon MD [address] [facility] [address] [place] [address] 06/03/2019 15:17:09 06/03/2019 15:54:34 Specialized medical examination 00481443 Z01.419 Venereal d isease screening 281313517 Z11.3 [id number] MD DULCE MARIA Limon MD [address] [facility] [address] [place] [address] 06/20/2020 15:04:21 06/20/2020 16:08:55 Specialized medical examination 71828371 Z01.419 Venereal d isease screening 570384300 Z11.3 Candidal vulvovaginitis 63404988 B37.3 [id number] MD DULCE MARIA Limon MD [address] [place] [address],[facility] [place] [address] 06/21/2021 07:58:56 06/21/2021 15:57:02 Specialized medical examination 10265145 Z01.419 Venereal d isease screening 911975858 Z11.3 Surveillan ce of oral contraception 175853142 Z30.41 [id number] MD DULCE MARIA Limon MD [address] [place] [address],[facility] [place] [address] 06/24/2022 08:01:05 06/24/2022 10:09:59 Specialized medical examination 41430272 Z01.419 Venereal d isease screening 610037858 Z11.3 [id number] MD DULCE MARIA Limon MD [address] [place] [address],[facility] [place] [address] 09/20/2022 07:59:06 09/20/2022 09:36:29 Atypical squamous cells of undetermined significance on cervical Papanicolaou smear 999533778 R87.610 [id number] MD DULCE MAIRA Limon MD [address] [place] [address],[facility] [place] [address] 06/25/2023 08:00:28 06/25/2023 10:12:54 Specialized medical examination 06854769 Z01.419 Venereal d isease screening 781182440 Z11.3 [id number] MD DULCE MARIA Limon MD [address] [place] [address],[facility] [place] [address] 08/10/2024 08:11:32 08/10/2024 15:40:40 Uses oral contraception 3487085 Z30.41 Specialize d medical examination 06602903 Z01.419 Venereal d isease screening 785119089 Z11.3 Health Concerns Section Related Observation LastModified by Organization Detai ls LastModified Time None Recorded Concern Status LastModified by Organization Details LastModified Time None Recorded Advance Directives Directive None Recorded Payers Insurance Date Sequence Insurance Name Policy Number Policy [place] Covered Member ID [place] Member ID Guarantor Name 06/25/2023 1 [place] [id number] Gail Caldwell [id number] Gail Caldwell 06/16/2021 1 [facility] [employer] (EPO) [id number] Gail Caldwell [id number] Gail Caldwell 06/16/2021 1 [place] C[place] [id number] Gail Caldwell [id number] Gail Caldwell 08/10/2024 1 [employer] Gail Caldwell [id number] Gail Caldwell 08/10/2024 1 [place] [id number] Gail Caldwell [id number] Gail Caldwell 06/24/2022 1 [place] [id number] Gail Caldwell [id number] Gail Caldwell Notes Date Note Type Note [...] home visits. Dulce Maria Ruelas MD [address] [facility], [place], [address], [place] - [facility], 06/21/2021 08:29:03 06/24/2022 text/html She is here for annual exam, does not have a partner. Doing well on OCP and elects to continue. 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 Dulce Maria Ruelas MD [address] [facility],[address], [place], [address], [facility] - [facility], 06/24/2022 08:55:37 09/20/2022 text/html She is here for repeat pap after prior pap had ASCUS negative HR HPV. Dulce Maria Ruelas MD [address] [facility],[address], [place], [address], [place] - [facility], 09/20/2022 08:25:13 06/25/2023 text/html She is here for annual, doing well on OCP, not sexually active in 6 years but likes to stay on pill for dysmenorrhea relief. Still working at [employer] in PT. Note from 2022: She is here for annual exam, does not have a partner. Doing well on OCP and elects to continue. 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 Dulce Maria Ruelas MD [address] [facility], [place], [address], [place] [facility], 06/25/2023 08:35:32 08/10/2024 text/html She is here for annual, doing well , on OCP for medical benefits, elects to continue. 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 Note from 2023: She is here for annual, doing well on OCP, not sexually active in 6 years but likes to stay on pill for dysmenorrhea relief. Still working at [employer] [facility] in PT. Dulce Maria Ruelas MD [address] [facility], [place], [address], [place] - [facility], 08/10/2024 08:38:20 OBGyn Episode No OBEpisode recorded.
--- OUTSIDE RECORDS SUMMARY | 2025-04-26 01:51 | XMS_ITS | Clinical Summary ---
Author Organization [facility] [address] [facility] Address [address] [place] [address] Phone Care Team Providers Care Petrographer Name Role Phone Alva Ibrahim MD Primary [...] Follows with Dr munoz- on immunotherapy Immunizations Immunization Administration Dates Next Due DTP 10/31/1994, 1,04/02/1990,01/31,1989 [id number] (Pentacel) 2mo to less than 5yo 03/02/1991 [...] care for your loved ones. For example, exceptional children teacher or elderly care for an [...] on file Sexual Orientation Not on file Last Filed Vital Signs Vital Sign Reading [...] AM EDT Office Visit Adult Medicine - [facility] [address] [place] [address] Alva Ibrahim MD [address] [place] [id number] Health Maintenance Due Date Last Done Comments COVID-19 Vaccine ( season) 2025 02/15/2023, 09/26/2021, 04/13/2021, Additional history exists Influenza Vaccine (#1) 2025 , 02/18/2023, 02/25/2022, Additional history exists Social Influencers of Health Screening 12/29/2025 12/29/2024 DTaP,Tdap,and Td Vaccines (9 - Td or Tdap) 05/29/2026 05/29/2016, 01/09/2006, 12/31/2000, Additional history exists Cervical Cancer Screening: Pap Smear 01/04/2027 01/05/2024 Cholesterol Screening (Lipid Panel) 01/13/2030 01/13/2025, 01/05/2024, [...] Priority Date/Time Associated Diagnosis Comments LIPID PANEL WITH REFLEX TO DIRECT LDL Routine 01/13/2025 8:44 AM EDT Physical exam, annual PAP SMEAR Routine 01/05/2024 from Last 3 Months or Most Recently Relevant to Health Maintenance Results * (ABNORMAL) Lipid panel with reflex to direct LDL (01/13/2025 8:44 AM EDT) Cholesterol 198 0 - 200 mg/dL LAB CHEMISTRY METHOD 01/13/2025 12:13 PM EDT [facility] Triglycerides 100 0 - 150 mg/dL LAB CHEMISTRY METHOD 01/13/2025 12:13 PM EDT [facility] HDL 68 >=40 mg/dL LAB CHEMISTRY METHOD 01/13/2025 12:13 PM EDT [facility] LDL Calculated 110(H) 0 - 100 mg/dL LAB CHEMISTRY METHOD 01/13/2025 12:13 PM T [facility] Comment:Estimated LDL Calcul ated using equation: Total cholesterol - HDL cholesterol - (Triglycerides/5) VLDL Cholesterol Darrel 20 mg/dL LAB CHEMISTRY METHOD 01/13/2025 12:13 PM EDT [facility] Non HDL Chol. (LDL+VLDL) 130 <145 mg/dL LAB CHEMISTRY METHOD 01/13/2025 12:13 PM EDT [facility] Chol/HDL Ratio 2.9 0.0 - 4.4 LAB CHEMISTRY METHOD 01/13/2025 12:13 PM EDT [facility] Blood Venous blood specimen / Unknown Venipuncture / Unknown 01/13/2025 8:44 AM EDT 01/13/2025 8:44 AM EDT Alva Ibrahim MD LAB BLOOD ORDERABL ES Final Result [facility] [address] [place] [address], * Pap Smear (01/05/2024) HM Pap smear no interpretation , abstracted Historical Provider HEALTH MAINTENANCE Final Result from Last 3 Months or Most Recently Relevant to Health Maintenance Insurance [facility] Care Teams Petrographer Relationship Specialty Start Date End Date Alva Ibrahim MD [address] [place] [address] [place] [address] PCP - General Internal Medicine 12/23/24
== END 2025-04-25 16:20 | disposition home or self-care (01) ==
LOC: HO.HMGAL 16:19
PROVIDERS: PCP Internal Medicine; Visit Provider Registered Nurse Emergency
DX: J30.89 Other allergic rhinitis (principal)
CPT/HCPCS: 95117; 95165